=== PATIENT | male | born 1960 | race Hispanic/Latino ===

== ENCOUNTER 2018-09-20 20:33 | Emergency (ER) | payer OTHER ==
[2018-09-20] MEDS ORDERED: KETOROLAC TROMETHAMINE 30MG/ML ONE (22:47)
== END 2018-09-20 23:59 | disposition home or self-care (01) ==
LOC: EDH 20:33
DX: M62.831 Muscle spasm of calf (principal); M25.562 Pain in left knee; Z87.891 Personal history of nicotine dependence
CPT/HCPCS: 93971; 96372; 99284; J1885

== ENCOUNTER 2018-10-16 10:31 | Emergency (ER) | payer OTHER ==
[2018-10-16] MEDS ORDERED: CEFAZOLIN SODIUM 1 GM VIAL ONE (11:04)
== END 2018-10-16 12:21 | disposition home or self-care (01) ==
LOC: EDH 10:31
DX: S62.637A Displaced fracture of distal phalanx of left little finger, initial encounter for closed fracture (principal); S62.633B Displaced fracture of distal phalanx of left middle finger, initial encounter for open fracture; W23.0XXA Caught, crushed, jammed, or pinched between moving objects, initial encounter; Y93.89 Activity, other specified; Y92.89 Other specified places as the place of occurrence of the external cause; Y99.8 Other external cause status
CPT/HCPCS: 29130; 73130; 96372; 99284; J0690

== ENCOUNTER 2020-04-16 20:11 | Inpatient (IN) | payer OTHER ==
[~2020-04-16] VITALS: Ht 154.9 cm; Wt 60.8 kg
[2020-04-16] MEDS ORDERED: DEXAMETHASONE SOD PHOSPHATE 10MG/ML 1ML VIAL ONE (20:42)
[2020-04-16] MEDS ORDERED: AZITHROMYCIN 500MG+NS 250ML 250 ML IV ONE (20:42)
[2020-04-16] MEDS ORDERED: CEFTRIAXONE SODIUM 1 GM ONE (20:42)
[2020-04-16] MEDS ORDERED: ACETAMINOPHEN EXTRA STRENGTH 500 MG TABLET ONE (20:43)
[2020-04-16 20:49] LABS: BASOPHILS % (AUTO) 0.2 % (0.0-5.0); HEMATOCRIT 39.1 % (42-54); LYMPHOCYTES % (AUTO) 3.5 % (21.0-51.0); MEAN CORPUSCULAR HEMOGLOBIN 29.8 pg (27.0-33.0); MEAN CORPUSCULAR HGB CONC 34.3 g/dL (32.0-36.0); MEAN CORPUSCULAR VOLUME 87.1 fL (79-99); MONOCYTES % (AUTO) 2.7 % (3.0-13.0); NEUTROPHILS % (AUTO) 93.2 % (40.0-77.0); PLATELET COUNT (AUTO) 170 K/uL (130-400); RED BLOOD CELL COUNT(AUTO) 4.49 MIL/uL (4.50-6.20); RED CELL DISTRIBUTION WIDTH 13.2 % (11.0-15.5); WHITE BLOOD COUNT (AUTO) 11.1 K/uL (4.8-10.8)
[2020-04-16] MEDS ORDERED: SODIUM CHLORIDE 0.9% 500ML 500 ML IV ONE (20:49)
[2020-04-16 20:59] LABS: CREATININE 1.1 mg/dL (0.5-1.5); POTASSIUM 4.2 mmol/L (3.5-5.1)
[2020-04-16 21:04] LABS: ALBUMIN 2.8 g/dL (3.5-5.0); BILIRUBIN,TOTAL 0.9 mg/dL (0.2-1.0); TOTAL PROTEIN, SERUM 7.3 g/dL (6.0-8.3)
[2020-04-17 03:08] LABS: ABG BASE EXCESS -1.9 mmol/L (-2.0-3.0); ABG OXYGEN SATURATION 95.5 % (95.0-99.0); ABG PCO2 40 mmHg (35-48)
[2020-04-17] MEDS ORDERED: NITROGLYCERIN 0.4 MG SL TAB SL PRN (03:30)
[2020-04-17] MEDS ORDERED: ONDANSETRON HCL 4 MG/2 ML VIAL IV PRN (03:30)
[2020-04-17] MEDS: ASCORBIC ACID 500 MG TAB PO SCH ×3 (03:30→20:23)
[2020-04-17] MEDS ORDERED: DiphenhydrAMINE HCL 50 MG/ML VIAL IV PRN (03:30)
[2020-04-17] MEDS ORDERED: DIPHENHYDRAMINE HCL 25 MG CAPSULE PO PRN (03:30)
[2020-04-17] MEDS ORDERED: LACTULOSE 20 GM/30 ML UDCUP PO PRN (03:30)
[2020-04-17] MEDS: CEFTRIAXONE SODIUM 1 GM IVP SCH (03:30)
[2020-04-17] MEDS ORDERED: ACETAMINOPHEN 325 MG TAB PO PRN (03:30)
[2020-04-17] MEDS ORDERED: MAG HYDROX/AL HYDROX/SIMETH ES 30 ML SUSP UDCUP PO PRN (03:30)
[2020-04-17] MEDS ORDERED: ERGOCALCIFEROL (VITAMIN D2) 50,000 UNIT CAPSULE PO ONE (03:30)
[2020-04-17] MEDS: DEXAMETHASONE SOD PHOSPHATE 4 MG/ML 1ML VIAL IVP SCH ×3 (03:30→20:35)
[2020-04-17] MEDS ORDERED: PHARMACY COMMUNICATION**REMDESIVIR MISC SCH (03:45)
[2020-04-17 04:40] LABS: HEMOGLOBIN A1C 6.2 % (4.0-6.0)
[2020-04-17 04:48] LABS: CRP QUANTITATIVE 303.3 mg/L (0.00-9.0)
[2020-04-17] MEDS ORDERED: DEXAMETHASONE SOD PHOSPHATE 10MG/ML 1ML VIAL ONE ×2 (05:53→09:08)
[2020-04-17] MEDS ORDERED: ASCORBIC ACID 500 MG TAB ONE ×2 (05:53→09:08)
[2020-04-17] MEDS ORDERED: ERGOCALCIFEROL (VITAMIN D2) 50,000 UNIT CAPSULE ONE (05:54)
[2020-04-17] MEDS ORDERED: COMPOUND IV REFRIGERATED 1 EACH IVSOLN MISC PRN (08:30)
[2020-04-17] MEDS ORDERED: REMDESIVIR (EUA) 520 200 MG in SODIUM CHLORIDE 0.9% 250 ML IV ONE (08:30)
[2020-04-17] MEDS ORDERED: ENOXAPARIN SODIUM 40 MG/0.4 ML SYRINGE SQ SCH (09:00)
[2020-04-17] MEDS ORDERED: FAMOTIDINE/PF 20 MG/2 ML VIAL IV SCH (09:00)
[2020-04-17] MEDS ORDERED: ACETYLCYSTEINE 600 MG CAPSULE PO SCH (09:00)
[2020-04-17] MEDS: THIAMINE HCL 100 MG/ML 2ML VIAL IVP SCH (09:00)
[2020-04-17] MEDS: DOXYCYCLINE HYCLATE 100 MG TABLET PO SCH ×2 (09:00→20:43)
[2020-04-17] MEDS ORDERED: DOXYCYCLINE HYCLATE 100 MG TABLET PO ONE (09:07)
[2020-04-17] MEDS ORDERED: THIAMINE HCL 100 MG/ML 2ML VIAL ONE (09:08)
[2020-04-17] MEDS ORDERED: ACETYLCYSTEINE 600 MG CAPSULE ONE (09:08)
[2020-04-17] MEDS ORDERED: FAMOTIDINE/PF 20 MG/2 ML VIAL IV ONE (09:09)
[2020-04-17] MEDS ORDERED: ZINC SULFATE 220 CAPSULE ONE (09:09)
[2020-04-17] MEDS ORDERED: ENOXAPARIN SODIUM 40 MG/0.4 ML SYRINGE SQ ONE (09:09)
[2020-04-17 11:00] VITALS: BP 134/92
[2020-04-17] MEDS: ZINC SULFATE 220 CAPSULE PO SCH (13:14)
[2020-04-17 16:00] VITALS: BP 121/81
[2020-04-17] MEDS ORDERED: GUAIFENESIN-CODEINE 5 ML SYRUP PO PRN (20:15)
[2020-04-17 20:30] VITALS: BP 118/65
[2020-04-17] MEDS: ENOXAPARIN SODIUM 40 MG/0.4 ML SYRINGE SQ SCH (20:48)
[2020-04-17] MEDS: INSULIN HUMULIN R 100 UNIT/ML 3ML SQ SCH (21:07)
[2020-04-17] MEDS: DIPYRIDAMOLE 25 MG TABLET PO SCH (21:54)
[2020-04-17] MEDS: ALBUTEROL SULFATE 0.083% 2.5 MG/3 ML INH IH PRN (21:55)
[2020-04-18 00:08] VITALS: BP 104/62
[2020-04-18] MEDS: ASCORBIC ACID 500 MG TAB PO SCH ×3 (03:27→21:10)
[2020-04-18] MEDS: CEFTRIAXONE SODIUM 1 GM IVP SCH (03:27)
[2020-04-18] MEDS: ALBUTEROL SULFATE 0.083% 2.5 MG/3 ML INH IH PRN (03:30)
[2020-04-18 04:16] VITALS: BP 91/58
[2020-04-18 05:15] LABS: BASOPHILS % (AUTO) 0.1 % (0.0-5.0); HEMATOCRIT 39.3 % (42-54); LYMPHOCYTES % (AUTO) 1.5 % (21.0-51.0); MEAN CORPUSCULAR HEMOGLOBIN 29.3 pg (27.0-33.0); MEAN CORPUSCULAR HGB CONC 33.3 g/dL (32.0-36.0); MEAN CORPUSCULAR VOLUME 87.9 fL (79-99); MONOCYTES % (AUTO) 2.2 % (3.0-13.0); NEUTROPHILS % (AUTO) 95.6 % (40.0-77.0); PLATELET COUNT (AUTO) 232 K/uL (130-400); RED BLOOD CELL COUNT(AUTO) 4.47 MIL/uL (4.50-6.20); RED CELL DISTRIBUTION WIDTH 13.5 % (11.0-15.5); WHITE BLOOD COUNT (AUTO) 17.4 K/uL (4.8-10.8)
[2020-04-18 05:35] LABS: ALBUMIN 2.5 g/dL (3.5-5.0); BILIRUBIN,DIRECT 0.1 mg/dL (0.0-0.3); BILIRUBIN,TOTAL 0.4 mg/dL (0.2-1.0); POTASSIUM 4.1 mmol/L (3.5-5.1)
[2020-04-18] MEDS ORDERED: REMDESIVIR LABS MISC SCH (06:00)
[2020-04-18 06:26] LABS: CRP QUANTITATIVE 3135.9 mg/L (0.00-9.0)
[2020-04-18 06:46] LABS: ERYTHROCYTE SEDIMENTATION RATE 86 MM/HR (0-20)
[2020-04-18] MEDS: INSULIN HUMULIN R 100 UNIT/ML 3ML SQ SCH ×4 (07:01→21:36)
[2020-04-18] MEDS: PANTOPRAZOLE SODIUM 40 MG TABLET.DR PO SCH (08:14)
[2020-04-18] MEDS: DOXYCYCLINE HYCLATE 100 MG TABLET PO SCH ×2 (08:14→21:10)
[2020-04-18] MEDS: ENOXAPARIN SODIUM 40 MG/0.4 ML SYRINGE SQ SCH ×2 (08:14→21:14)
[2020-04-18] MEDS: THIAMINE HCL 100 MG/ML 2ML VIAL IVP SCH (08:15)
[2020-04-18] MEDS: DEXAMETHASONE SOD PHOSPHATE 4 MG/ML 1ML VIAL IVP SCH (08:16)
[2020-04-18 08:26] VITALS: BP 95/58
[2020-04-18] MEDS ORDERED: PANTOPRAZOLE SODIUM 40 MG TABLET.DR PO SCH (09:00)
[2020-04-18] MEDS: DIPYRIDAMOLE 25 MG TABLET PO SCH (09:38)
[2020-04-18] MEDS: BARICITINIB (EUA) 2 MG TABLET PO SCH (11:23)
[2020-04-18] MEDS: ZINC SULFATE 220 CAPSULE PO SCH (11:23)
[2020-04-18 11:44] VITALS: BP 94/58
[2020-04-18] MEDS: REMDESIVIR (EUA) 520 100 MG in SODIUM CHLORIDE 0.9% 250 ML IV SCH (12:49)
[2020-04-18 20:05] VITALS: BP 107/61
[2020-04-19] VITALS (7 sets, daily range): BP systolic 95–115; BP diastolic 47–68
[2020-04-19 03:48] LABS: ABG BASE EXCESS 2.3 mmol/L (-2.0-3.0); ABG HCO3 26.6 mmol/L (21.0-28.0); ABG OXYGEN SATURATION 97.8 % (95.0-99.0); ABG PCO2 40 mmHg (35-48)
[2020-04-19] MEDS: ASCORBIC ACID 500 MG TAB PO SCH ×3 (03:56→20:49)
[2020-04-19] MEDS: CEFTRIAXONE SODIUM 1 GM IVP SCH (03:56)
[2020-04-19 04:41] LABS: BASOPHILS % (AUTO) 0.1 % (0.0-5.0); HEMATOCRIT 38.7 % (42-54); LYMPHOCYTES % (AUTO) 3.1 % (21.0-51.0); MEAN CORPUSCULAR HEMOGLOBIN 29.2 pg (27.0-33.0); MEAN CORPUSCULAR HGB CONC 32.6 g/dL (32.0-36.0); MEAN CORPUSCULAR VOLUME 89.8 fL (79-99); MONOCYTES % (AUTO) 4.4 % (3.0-13.0); NEUTROPHILS % (AUTO) 91.8 % (40.0-77.0); PLATELET COUNT (AUTO) 263 K/uL (130-400); RED BLOOD CELL COUNT(AUTO) 4.31 MIL/uL (4.50-6.20); RED CELL DISTRIBUTION WIDTH 13.9 % (11.0-15.5)
[2020-04-19 05:15] LABS: ALBUMIN 2.4 g/dL (3.5-5.0); BILIRUBIN,TOTAL 0.4 mg/dL (0.2-1.0); CRP QUANTITATIVE 134.8 mg/L (0.00-9.0); MAGNESIUM 2.3 mg/dL (1.80-2.40); POTASSIUM 4.7 mmol/L (3.5-5.1); TOTAL PROTEIN, SERUM 6.5 g/dL (6.0-8.3)
[2020-04-19] MEDS: INSULIN HUMULIN R 100 UNIT/ML 3ML SQ SCH ×4 (07:25→20:49)
[2020-04-19] MEDS: DEXAMETHASONE SOD PHOSPHATE 4 MG/ML 1ML VIAL IVP SCH (08:00)
[2020-04-19] MEDS: THIAMINE HCL 100 MG/ML 2ML VIAL IVP SCH (08:00)
[2020-04-19] MEDS: DOXYCYCLINE HYCLATE 100 MG TABLET PO SCH ×2 (08:01→20:49)
[2020-04-19] MEDS: PANTOPRAZOLE SODIUM 40 MG TABLET.DR PO SCH (08:01)
[2020-04-19] MEDS: DIPYRIDAMOLE 25 MG TABLET PO SCH (08:01)
[2020-04-19] MEDS: ENOXAPARIN SODIUM 40 MG/0.4 ML SYRINGE SQ SCH ×2 (08:03→20:52)
[2020-04-19] MEDS: BARICITINIB (EUA) 2 MG TABLET PO SCH (08:03)
[2020-04-19] MEDS: ZINC SULFATE 220 CAPSULE PO SCH (11:51)
[2020-04-19] MEDS: REMDESIVIR (EUA) 520 100 MG in SODIUM CHLORIDE 0.9% 250 ML IV SCH (12:59)
[2020-04-19] MEDS ORDERED: FAMOTIDINE/PF 20 MG/2 ML VIAL IV SCH (16:00)
[2020-04-20] MEDS ORDERED: GUAIFENESIN-CODEINE 5 ML SYRUP ONE (02:37)
[2020-04-20] MEDS: CEFTRIAXONE SODIUM 1 GM IVP SCH (02:43)
[2020-04-20] MEDS: ASCORBIC ACID 500 MG TAB PO SCH ×3 (02:44→21:18)
[2020-04-20 03:21] VITALS: BP 93/61
[2020-04-20 05:49] LABS: BASOPHILS % (AUTO) 0.1 % (0.0-5.0); HEMATOCRIT 40.4 % (42-54); LYMPHOCYTES % (AUTO) 4.8 % (21.0-51.0); MEAN CORPUSCULAR HEMOGLOBIN 29.7 pg (27.0-33.0); MEAN CORPUSCULAR HGB CONC 32.9 g/dL (32.0-36.0); MEAN CORPUSCULAR VOLUME 90.2 fL (79-99); MONOCYTES % (AUTO) 5.2 % (3.0-13.0); NEUTROPHILS % (AUTO) 88.7 % (40.0-77.0); PLATELET COUNT (AUTO) 283 K/uL (130-400); RED BLOOD CELL COUNT(AUTO) 4.48 MIL/uL (4.50-6.20); RED CELL DISTRIBUTION WIDTH 13.8 % (11.0-15.5); WHITE BLOOD COUNT (AUTO) 12.8 K/uL (4.8-10.8)
[2020-04-20 06:12] LABS: ALBUMIN 2.3 g/dL (3.5-5.0); BILIRUBIN,TOTAL 0.4 mg/dL (0.2-1.0); CRP QUANTITATIVE 60.3 mg/L (0.00-9.0); POTASSIUM 4.6 mmol/L (3.5-5.1); TOTAL PROTEIN, SERUM 6.3 g/dL (6.0-8.3)
[2020-04-20] MEDS: INSULIN HUMULIN R 100 UNIT/ML 3ML SQ SCH ×4 (06:35→20:39)
[2020-04-20 07:56] VITALS: BP 103/55
[2020-04-20] MEDS: THIAMINE HCL 100 MG/ML 2ML VIAL IVP SCH (08:01)
[2020-04-20] MEDS: DEXAMETHASONE SOD PHOSPHATE 4 MG/ML 1ML VIAL IVP SCH (08:01)
[2020-04-20] MEDS: DOXYCYCLINE HYCLATE 100 MG TABLET PO SCH ×2 (08:04→21:18)
[2020-04-20] MEDS: BARICITINIB (EUA) 2 MG TABLET PO SCH (08:04)
[2020-04-20] MEDS: DIPYRIDAMOLE 25 MG TABLET PO SCH (08:05)
[2020-04-20] MEDS: ENOXAPARIN SODIUM 40 MG/0.4 ML SYRINGE SQ SCH ×2 (08:07→21:19)
[2020-04-20] MEDS: GUAIFENESIN-CODEINE 5 ML SYRUP PO PRN ×2 (09:34→21:19)
[2020-04-20] MEDS: ZINC SULFATE 220 CAPSULE PO SCH (11:54)
[2020-04-20 12:00] VITALS: BP 108/62
[2020-04-20] MEDS: REMDESIVIR (EUA) 520 100 MG in SODIUM CHLORIDE 0.9% 250 ML IV SCH (14:48)
[2020-04-20 16:31] VITALS: BP 110/61
[2020-04-20 19:53] VITALS: BP 102/49
[2020-04-21 00:02] VITALS: BP 91/59
[2020-04-21] MEDS: CEFTRIAXONE SODIUM 1 GM IVP SCH (03:26)
[2020-04-21] MEDS: GUAIFENESIN-CODEINE 5 ML SYRUP PO PRN ×2 (03:26→17:05)
[2020-04-21] MEDS: ASCORBIC ACID 500 MG TAB PO SCH ×3 (03:26→20:00)
[2020-04-21 04:52] VITALS: BP 94/46
[2020-04-21 05:29] LABS: BASOPHILS % (AUTO) 0.2 % (0.0-5.0); EOSINOPHILS % (AUTO) 0.3 % (0.0-8.0); HEMATOCRIT 42.9 % (42-54); LYMPHOCYTES % (AUTO) 5.4 % (21.0-51.0); MEAN CORPUSCULAR HEMOGLOBIN 28.9 pg (27.0-33.0); MEAN CORPUSCULAR HGB CONC 32.4 g/dL (32.0-36.0); MEAN CORPUSCULAR VOLUME 89.2 fL (79-99); MONOCYTES % (AUTO) 3.7 % (3.0-13.0); NEUTROPHILS % (AUTO) 88.3 % (40.0-77.0); PLATELET COUNT (AUTO) 304 K/uL (130-400); RED BLOOD CELL COUNT(AUTO) 4.81 MIL/uL (4.50-6.20); RED CELL DISTRIBUTION WIDTH 13.6 % (11.0-15.5); WHITE BLOOD COUNT (AUTO) 13.6 K/uL (4.8-10.8)
[2020-04-21 05:40] LABS: ALBUMIN 2.5 g/dL (3.5-5.0); BILIRUBIN,TOTAL 0.6 mg/dL (0.2-1.0); CREATININE 0.8 mg/dL (0.5-1.5); POTASSIUM 4.5 mmol/L (3.5-5.1)
[2020-04-21] MEDS: INSULIN HUMULIN R 100 UNIT/ML 3ML SQ SCH ×4 (06:27→21:00)
[2020-04-21 08:06] VITALS: BP 96/52
[2020-04-21] MEDS: BARICITINIB (EUA) 2 MG TABLET PO SCH (08:57)
[2020-04-21] MEDS: THIAMINE HCL 100 MG/ML 2ML VIAL IVP SCH (08:57)
[2020-04-21] MEDS: DIPYRIDAMOLE 25 MG TABLET PO SCH (08:57)
[2020-04-21] MEDS: DEXAMETHASONE SOD PHOSPHATE 4 MG/ML 1ML VIAL IVP SCH (08:58)
[2020-04-21] MEDS: DOXYCYCLINE HYCLATE 100 MG TABLET PO SCH ×2 (08:58→21:00)
[2020-04-21] MEDS: ENOXAPARIN SODIUM 40 MG/0.4 ML SYRINGE SQ SCH ×2 (09:00→21:00)
[2020-04-21] MEDS: ZINC SULFATE 220 CAPSULE PO SCH (11:25)
[2020-04-21] MEDS: DOCUSATE SODIUM 100 MG CAP PO SCH ×2 (11:26→18:15)
[2020-04-21] MEDS: REMDESIVIR (EUA) 520 100 MG in SODIUM CHLORIDE 0.9% 250 ML IV SCH (14:16)
[2020-04-21 16:14] VITALS: BP 93/52
[2020-04-21 19:40] VITALS: BP 105/60
[2020-04-21 23:27] VITALS: BP 94/54
[2020-04-22] MEDS: GUAIFENESIN-CODEINE 5 ML SYRUP PO PRN (01:27)
[2020-04-22] MEDS: DOCUSATE SODIUM 100 MG CAP PO SCH ×3 (02:35→17:28)
[2020-04-22 03:42] LABS: ABG BASE EXCESS 1.9 mmol/L (-2.0-3.0); ABG HCO3 25.4 mmol/L (21.0-28.0); ABG PCO2 37 mmHg (35-48)
[2020-04-22 03:43] VITALS: BP 106/62
[2020-04-22] MEDS: CEFTRIAXONE SODIUM 1 GM IVP SCH (03:53)
[2020-04-22] MEDS: ASCORBIC ACID 500 MG TAB PO SCH ×3 (04:13→19:50)
[2020-04-22 06:26] LABS: BASOPHILS % (AUTO) 0.2 % (0.0-5.0); EOSINOPHILS % (AUTO) 0.8 % (0.0-8.0); HEMATOCRIT 41.7 % (42-54); MEAN CORPUSCULAR HEMOGLOBIN 29.6 pg (27.0-33.0); MEAN CORPUSCULAR HGB CONC 33.8 g/dL (32.0-36.0); MEAN CORPUSCULAR VOLUME 87.4 fL (79-99); MONOCYTES % (AUTO) 2.6 % (3.0-13.0); NEUTROPHILS % (AUTO) 90.3 % (40.0-77.0); PLATELET COUNT (AUTO) 311 K/uL (130-400); RED BLOOD CELL COUNT(AUTO) 4.77 MIL/uL (4.50-6.20); RED CELL DISTRIBUTION WIDTH 13.3 % (11.0-15.5); WHITE BLOOD COUNT (AUTO) 16.1 K/uL (4.8-10.8)
[2020-04-22 06:40] LABS: CREATININE 0.8 mg/dL (0.5-1.5); POTASSIUM 4.2 mmol/L (3.5-5.1)
[2020-04-22] MEDS: INSULIN HUMULIN R 100 UNIT/ML 3ML SQ SCH ×4 (07:30→21:00)
[2020-04-22 07:56] VITALS: BP 100/54
[2020-04-22] MEDS: BARICITINIB (EUA) 2 MG TABLET PO SCH (08:22)
[2020-04-22] MEDS: SENNOSIDES 8.6 MG TABLET PO SCH (08:22)
[2020-04-22] MEDS: DOXYCYCLINE HYCLATE 100 MG TABLET PO SCH (08:22)
[2020-04-22] MEDS: DIPYRIDAMOLE 25 MG TABLET PO SCH (08:22)
[2020-04-22] MEDS: THIAMINE HCL 100 MG/ML 2ML VIAL IVP SCH (08:22)
[2020-04-22] MEDS: ENOXAPARIN SODIUM 40 MG/0.4 ML SYRINGE SQ SCH ×2 (08:23→22:35)
[2020-04-22] MEDS: DEXAMETHASONE SOD PHOSPHATE 4 MG/ML 1ML VIAL IVP SCH (08:23)
[2020-04-22] MEDS: ZINC SULFATE 220 CAPSULE PO SCH (11:10)
[2020-04-22 12:11] VITALS: BP 104/64
[2020-04-22] MEDS ORDERED: ALBUTEROL INHALER 90MCG/INH IH PRN (14:15)
[2020-04-22 16:19] VITALS: BP 95/59
[2020-04-22 19:50] VITALS: BP 105/47
[2020-04-22 23:31] VITALS: BP 96/60
[2020-04-23] MEDS: GUAIFENESIN-CODEINE 5 ML SYRUP PO PRN (01:37)
[2020-04-23] MEDS: DOCUSATE SODIUM 100 MG CAP PO SCH ×3 (02:20→18:15)
[2020-04-23 02:50] LABS: ABG BASE EXCESS 1.1 mmol/L (-2.0-3.0); ABG OXYGEN SATURATION 76.5 % (95.0-99.0); ABG PCO2 37 mmHg (35-48)
[2020-04-23] MEDS: CEFTRIAXONE SODIUM 1 GM IVP SCH (02:53)
[2020-04-23 03:46] VITALS: BP 108/61
[2020-04-23 05:10] LABS: BASOPHILS % (AUTO) 0.1 % (0.0-5.0); EOSINOPHILS % (AUTO) 0.1 % (0.0-8.0); HEMATOCRIT 41.6 % (42-54); MEAN CORPUSCULAR HGB CONC 32.9 g/dL (32.0-36.0); MEAN CORPUSCULAR VOLUME 87.9 fL (79-99); MONOCYTES % (AUTO) 2.9 % (3.0-13.0); NEUTROPHILS % (AUTO) 92.1 % (40.0-77.0); PLATELET COUNT (AUTO) 356 K/uL (130-400); RED BLOOD CELL COUNT(AUTO) 4.73 MIL/uL (4.50-6.20); RED CELL DISTRIBUTION WIDTH 13.2 % (11.0-15.5)
[2020-04-23 05:42] LABS: POTASSIUM 4.7 mmol/L (3.5-5.1)
[2020-04-23 07:05] LABS: CRP QUANTITATIVE 207.6 mg/L (0.00-9.0)
[2020-04-23] MEDS: INSULIN HUMULIN R 100 UNIT/ML 3ML SQ SCH ×4 (07:30→21:00)
[2020-04-23 07:54] VITALS: BP 104/60
[2020-04-23] MEDS: BARICITINIB (EUA) 2 MG TABLET PO SCH (08:48)
[2020-04-23] MEDS: DIPYRIDAMOLE 25 MG TABLET PO SCH (08:48)
[2020-04-23] MEDS: DEXAMETHASONE SOD PHOSPHATE 4 MG/ML 1ML VIAL IVP SCH (08:48)
[2020-04-23] MEDS: SENNOSIDES 8.6 MG TABLET PO SCH (08:48)
[2020-04-23] MEDS: THIAMINE HCL 100 MG/ML 2ML VIAL IVP SCH (08:48)
[2020-04-23] MEDS: ENOXAPARIN SODIUM 40 MG/0.4 ML SYRINGE SQ SCH ×2 (08:49→21:40)
[2020-04-23] MEDS: ASCORBIC ACID 500 MG TAB PO SCH ×3 (11:30→21:42)
[2020-04-23] MEDS: ZINC SULFATE 220 CAPSULE PO SCH (12:07)
[2020-04-23 12:34] VITALS: BP 99/50
[2020-04-23 16:50] VITALS: BP 101/58
[2020-04-23] MEDS ORDERED: BUDESONIDE 0.25 MG/2 ML INH IH SCH (18:00)
[2020-04-23 20:14] VITALS: BP 108/55
[2020-04-23] MEDS: ALBUTEROL INHALER 90MCG/INH IH SCH (22:00)
[2020-04-23 23:41] VITALS: BP 103/52
[2020-04-24] MEDS: GUAIFENESIN-CODEINE 5 ML SYRUP PO PRN (01:52)
[2020-04-24] MEDS: DOCUSATE SODIUM 100 MG CAP PO SCH ×3 (01:52→18:47)
[2020-04-24 03:42] VITALS: BP 96/44
[2020-04-24] MEDS: ASCORBIC ACID 500 MG TAB PO SCH ×3 (05:05→21:12)
[2020-04-24] MEDS: ALBUTEROL INHALER 90MCG/INH IH SCH ×3 (05:05→21:13)
[2020-04-24] MEDS: INSULIN HUMULIN R 100 UNIT/ML 3ML SQ SCH ×4 (05:20→20:57)
[2020-04-24 07:58] LABS: BASOPHILS % (AUTO) 0.2 % (0.0-5.0); EOSINOPHILS % (AUTO) 0.4 % (0.0-8.0); HEMATOCRIT 41.8 % (42-54); LYMPHOCYTES % (AUTO) 3.6 % (21.0-51.0); MEAN CORPUSCULAR HEMOGLOBIN 29.7 pg (27.0-33.0); MEAN CORPUSCULAR VOLUME 87.4 fL (79-99); MONOCYTES % (AUTO) 2.1 % (3.0-13.0); NEUTROPHILS % (AUTO) 92.2 % (40.0-77.0); PLATELET COUNT (AUTO) 393 K/uL (130-400); RED BLOOD CELL COUNT(AUTO) 4.78 MIL/uL (4.50-6.20); RED CELL DISTRIBUTION WIDTH 13.4 % (11.0-15.5); WHITE BLOOD COUNT (AUTO) 16.2 K/uL (4.8-10.8)
[2020-04-24 08:07] LABS: CREATININE 0.9 mg/dL (0.5-1.5); POTASSIUM 4.3 mmol/L (3.5-5.1)
[2020-04-24 08:25] VITALS: BP 94/52
[2020-04-24] MEDS: BARICITINIB (EUA) 2 MG TABLET PO SCH (08:37)
[2020-04-24] MEDS: ENOXAPARIN SODIUM 40 MG/0.4 ML SYRINGE SQ SCH ×2 (08:38→21:13)
[2020-04-24] MEDS: SENNOSIDES 8.6 MG TABLET PO SCH (08:38)
[2020-04-24] MEDS: DIPYRIDAMOLE 25 MG TABLET PO SCH (08:38)
[2020-04-24] MEDS: THIAMINE HCL 100 MG/ML 2ML VIAL IVP SCH (08:38)
[2020-04-24] MEDS: DEXAMETHASONE SOD PHOSPHATE 4 MG/ML 1ML VIAL IVP SCH (08:38)
[2020-04-24] MEDS: ZINC SULFATE 220 CAPSULE PO SCH (11:37)
[2020-04-24 12:38] VITALS: BP 103/60
[2020-04-24 16:40] VITALS: BP 97/56
[2020-04-24 20:15] VITALS: BP 117/57
[2020-04-24 23:48] VITALS: BP 96/58
[2020-04-25] MEDS: DOCUSATE SODIUM 100 MG CAP PO SCH ×3 (02:21→18:17)
[2020-04-25 02:59] VITALS: BP 106/56
[2020-04-25] MEDS: ASCORBIC ACID 500 MG TAB PO SCH ×3 (03:28→19:39)
[2020-04-25 04:30] LABS: BASOPHILS % (AUTO) 0.2 % (0.0-5.0); EOSINOPHILS % (AUTO) 0.4 % (0.0-8.0); HEMATOCRIT 42.7 % (42-54); LYMPHOCYTES % (AUTO) 3.3 % (21.0-51.0); MEAN CORPUSCULAR HEMOGLOBIN 29.1 pg (27.0-33.0); MEAN CORPUSCULAR VOLUME 88.2 fL (79-99); MONOCYTES % (AUTO) 1.9 % (3.0-13.0); NEUTROPHILS % (AUTO) 92.8 % (40.0-77.0); PLATELET COUNT (AUTO) 401 K/uL (130-400); RED BLOOD CELL COUNT(AUTO) 4.84 MIL/uL (4.50-6.20); RED CELL DISTRIBUTION WIDTH 13.2 % (11.0-15.5); WHITE BLOOD COUNT (AUTO) 16.5 K/uL (4.8-10.8)
[2020-04-25 04:44] LABS: BILIRUBIN,TOTAL 0.8 mg/dL (0.2-1.0); POTASSIUM 4.3 mmol/L (3.5-5.1); TOTAL PROTEIN, SERUM 6.7 g/dL (6.0-8.3)
[2020-04-25 05:09] LABS: CRP QUANTITATIVE 246.2 mg/L (0.00-9.0)
[2020-04-25] MEDS: ALBUTEROL INHALER 90MCG/INH IH SCH ×3 (06:03→21:28)
[2020-04-25] MEDS: INSULIN HUMULIN R 100 UNIT/ML 3ML SQ SCH ×4 (07:30→21:26)
[2020-04-25 08:00] VITALS: BP 106/57
[2020-04-25] MEDS: DEXAMETHASONE SOD PHOSPHATE 4 MG/ML 1ML VIAL IVP SCH (08:54)
[2020-04-25] MEDS: BARICITINIB (EUA) 2 MG TABLET PO SCH (08:54)
[2020-04-25] MEDS: ENOXAPARIN SODIUM 40 MG/0.4 ML SYRINGE SQ SCH ×2 (08:55→20:39)
[2020-04-25] MEDS: SENNOSIDES 8.6 MG TABLET PO SCH (08:55)
[2020-04-25] MEDS: DIPYRIDAMOLE 25 MG TABLET PO SCH (08:55)
[2020-04-25] MEDS: THIAMINE HCL 100 MG/ML 2ML VIAL IVP SCH (08:56)
[2020-04-25] MEDS: ZINC SULFATE 220 CAPSULE PO SCH (11:09)
[2020-04-25 12:00] VITALS: BP 91/60
[2020-04-25 16:00] VITALS: BP 111/62
[2020-04-25 19:34] VITALS: BP 104/64
[2020-04-25] MEDS: GUAIFENESIN-CODEINE 5 ML SYRUP PO PRN (20:43)
[2020-04-25] MEDS: POLYETHYLENE GLYCOL 3350 17 GM POWD.PACK PO PRN (20:47)
[2020-04-25 23:35] VITALS: BP 100/44
[2020-04-26] MEDS: DOCUSATE SODIUM 100 MG CAP PO SCH ×3 (02:15→17:21)
[2020-04-26 03:16] VITALS: BP 117/65
[2020-04-26] MEDS: ASCORBIC ACID 500 MG TAB PO SCH ×3 (03:25→19:57)
[2020-04-26 06:26] LABS: BASOPHILS % (AUTO) 0.1 % (0.0-5.0); EOSINOPHILS % (AUTO) 0.4 % (0.0-8.0); HEMATOCRIT 44.3 % (42-54); LYMPHOCYTES % (AUTO) 2.5 % (21.0-51.0); MEAN CORPUSCULAR HEMOGLOBIN 29.6 pg (27.0-33.0); MEAN CORPUSCULAR HGB CONC 33.4 g/dL (32.0-36.0); MEAN CORPUSCULAR VOLUME 88.6 fL (79-99); MONOCYTES % (AUTO) 1.9 % (3.0-13.0); NEUTROPHILS % (AUTO) 93.8 % (40.0-77.0); PLATELET COUNT (AUTO) 400 K/uL (130-400); RED CELL DISTRIBUTION WIDTH 13.6 % (11.0-15.5); WHITE BLOOD COUNT (AUTO) 19.5 K/uL (4.8-10.8)
[2020-04-26] MEDS: ALBUTEROL INHALER 90MCG/INH IH SCH ×3 (06:36→22:18)
[2020-04-26] MEDS: INSULIN HUMULIN R 100 UNIT/ML 3ML SQ SCH ×4 (06:36→20:27)
[2020-04-26 06:45] LABS: BILIRUBIN,DIRECT 0.2 mg/dL (0.0-0.3); BILIRUBIN,TOTAL 0.8 mg/dL (0.2-1.0); POTASSIUM 4.3 mmol/L (3.5-5.1)
[2020-04-26 06:53] LABS: CRP QUANTITATIVE 187.3 mg/L (0.00-9.0)
[2020-04-26 08:00] VITALS: BP 99/58
[2020-04-26] MEDS: BARICITINIB (EUA) 2 MG TABLET PO SCH (08:51)
[2020-04-26] MEDS: SENNOSIDES 8.6 MG TABLET PO SCH (08:52)
[2020-04-26] MEDS: ENOXAPARIN SODIUM 40 MG/0.4 ML SYRINGE SQ SCH ×2 (08:52→20:49)
[2020-04-26] MEDS: DIPYRIDAMOLE 25 MG TABLET PO SCH (08:52)
[2020-04-26] MEDS: DEXAMETHASONE SOD PHOSPHATE 4 MG/ML 1ML VIAL IVP SCH (08:53)
[2020-04-26] MEDS: THIAMINE HCL 100 MG/ML 2ML VIAL IVP SCH (08:53)
[2020-04-26] MEDS: ZINC SULFATE 220 CAPSULE PO SCH (11:27)
[2020-04-26 12:00] VITALS: BP 115/71
[2020-04-26 16:00] VITALS: BP 96/51
[2020-04-26 19:00] VITALS: BP 102/55
[2020-04-26] MEDS: POLYETHYLENE GLYCOL 3350 17 GM POWD.PACK PO PRN (20:49)
[2020-04-26] MEDS: GUAIFENESIN-CODEINE 5 ML SYRUP PO PRN (20:50)
[2020-04-26 23:00] VITALS: BP 102/54
[2020-04-27] VITALS (36 sets, daily range): BP systolic 83–120; BP diastolic 48–72
[2020-04-27] MEDS: ASCORBIC ACID 500 MG TAB PO SCH ×3 (04:16→19:58)
[2020-04-27] MEDS: DOCUSATE SODIUM 100 MG CAP PO SCH ×3 (04:17→17:56)
[2020-04-27 04:34] LABS: BASOPHILS % (AUTO) 0.2 % (0.0-5.0); EOSINOPHILS % (AUTO) 0.1 % (0.0-8.0); HEMATOCRIT 43.9 % (42-54); LYMPHOCYTES % (AUTO) 1.9 % (21.0-51.0); MEAN CORPUSCULAR HEMOGLOBIN 29.1 pg (27.0-33.0); MEAN CORPUSCULAR VOLUME 88.2 fL (79-99); MONOCYTES % (AUTO) 2.6 % (3.0-13.0); NEUTROPHILS % (AUTO) 94.4 % (40.0-77.0); PLATELET COUNT (AUTO) 422 K/uL (130-400); RED BLOOD CELL COUNT(AUTO) 4.98 MIL/uL (4.50-6.20); RED CELL DISTRIBUTION WIDTH 13.6 % (11.0-15.5); WHITE BLOOD COUNT (AUTO) 22.9 K/uL (4.8-10.8)
[2020-04-27 05:06] LABS: BILIRUBIN,TOTAL 0.8 mg/dL (0.2-1.0); CREATININE 0.9 mg/dL (0.5-1.5); POTASSIUM 4.5 mmol/L (3.5-5.1); TOTAL PROTEIN, SERUM 6.4 g/dL (6.0-8.3)
[2020-04-27] MEDS ORDERED: LORAZEPAM 2 MG/ML 1 ML VIAL IVP ONE (05:30)
[2020-04-27 05:33] LABS: CRP QUANTITATIVE 193.5 mg/L (0.00-9.0)
[2020-04-27] MEDS: ALBUTEROL INHALER 90MCG/INH IH SCH ×2 (05:51→15:04)
[2020-04-27] MEDS: INSULIN HUMULIN R 100 UNIT/ML 3ML SQ SCH ×4 (06:02→21:00)
[2020-04-27 07:08] LABS: ABG HCO3 23.7 mmol/L (21.0-28.0); ABG OXYGEN SATURATION 77.6 % (95.0-99.0); ABG PCO2 44 mmHg (35-48)
[2020-04-27] MEDS ORDERED: PROPOFOL 1000 MG/100 ML 100 ML IV ONE ×2 (08:17→11:26)
[2020-04-27] MEDS ORDERED: VANCOMYCIN PROTOCOL PER PHARMACY IV SCH (08:30)
[2020-04-27] MEDS ORDERED: FENTANYL CITRATE PF 0.05 MG/ML 1,000 MCG in SODIUM CHLORIDE 0.9% 100 ML IVPB SCH (08:30)
[2020-04-27] MEDS ORDERED: FENTANYL 2500MCG+NS 250ML 250 ML IV ONE ×2 (08:47→17:43)
[2020-04-27] MEDS: MIDAZOLAM 100MG-0.9% NS 100ML 100ML BAG IV SCH (09:00)
[2020-04-27] MEDS ORDERED: FUROSEMIDE 10 MG/ML 2ML VIAL IV SCH (09:15)
[2020-04-27] MEDS ORDERED: PHARMACY COMMUNICATION MISC SCH (09:15)
[2020-04-27] MEDS ORDERED: ARTIFICAL TEARS SOL 15 ML OU SCH (09:30)
[2020-04-27] MEDS: VECURONIUM 50MG/NS 50ML IV SCH ×2 (09:45)
[2020-04-27] MEDS: NOREPINEPHRINE 4MG/NS 250ML 250 ML IV SCH (10:00)
[2020-04-27] MEDS: METHYLPREDNISOLONE SOD SUCC 40MG/ML 1ML IVP SCH (10:17)
[2020-04-27] MEDS: MEROPENEM 1 GM VIAL IVP SCH ×2 (10:17→17:49)
[2020-04-27] MEDS: ENOXAPARIN SODIUM 40 MG/0.4 ML SYRINGE SQ SCH ×2 (10:18→22:23)
[2020-04-27] MEDS: THIAMINE HCL 100 MG/ML 2ML VIAL IVP SCH (10:18)
[2020-04-27] MEDS: SENNOSIDES 8.6 MG TABLET PO SCH (10:18)
[2020-04-27] MEDS: ZINC SULFATE 220 CAPSULE PO SCH (10:18)
[2020-04-27] MEDS: VANCOMYCIN 1GM+NS 250ML 250 ML IV SCH ×2 (10:19→22:46)
[2020-04-27] MEDS: FAMOTIDINE/PF 20 MG/2 ML VIAL IV SCH ×2 (10:22→22:19)
[2020-04-27] MEDS: BARICITINIB (EUA) 2 MG TABLET PO SCH (11:29)
[2020-04-27 11:39] LABS: ABG BASE EXCESS -2.8 mmol/L (-2.0-3.0); ABG HCO3 33.1 mmol/L (21.0-28.0); ABG OXYGEN SATURATION 79.8 % (95.0-99.0); ABG PCO2 138 mmHg (35-48)
[2020-04-27] MEDS: DIPYRIDAMOLE 25 MG TABLET PO SCH (11:45)
[2020-04-27 13:07] LABS: ABG BASE EXCESS -4.6 mmol/L (-2.0-3.0); ABG HCO3 31.2 mmol/L (21.0-28.0); ABG OXYGEN SATURATION 73.2 % (95.0-99.0); ABG PCO2 135 mmHg (35-48)
[2020-04-27] MEDS ORDERED: VASOPRESSIN 20 UNITS in SODIUM CHLORIDE 0.9% 100 ML IV STA (13:42)
[2020-04-27 13:49] LABS: BASOPHILS % (AUTO) 0.2 % (0.0-5.0); HEMATOCRIT 48.5 % (42-54); LYMPHOCYTES % (AUTO) 1.2 % (21.0-51.0); MEAN CORPUSCULAR HEMOGLOBIN 29.4 pg (27.0-33.0); MEAN CORPUSCULAR HGB CONC 31.3 g/dL (32.0-36.0); MEAN CORPUSCULAR VOLUME 93.8 fL (79-99); MONOCYTES % (AUTO) 1.5 % (3.0-13.0); NEUTROPHILS % (AUTO) 95.4 % (40.0-77.0); PLATELET COUNT (AUTO) 445 K/uL (130-400); RED BLOOD CELL COUNT(AUTO) 5.17 MIL/uL (4.50-6.20); RED CELL DISTRIBUTION WIDTH 13.7 % (11.0-15.5)
[2020-04-27 13:51] LABS: WHITE BLOOD COUNT (AUTO) 36.2 K/uL (4.8-10.8)
[2020-04-27 13:55] LABS: ABG BASE EXCESS -6.3 mmol/L (-2.0-3.0); ABG HCO3 26.4 mmol/L (21.0-28.0); ABG OXYGEN SATURATION 75.9 % (95.0-99.0); ABG PCO2 92 mmHg (35-48)
[2020-04-27 14:04] LABS: BILIRUBIN,TOTAL 0.8 mg/dL (0.2-1.0); CREATININE 1.1 mg/dL (0.5-1.5); POTASSIUM 5.4 mmol/L (3.5-5.1); TOTAL PROTEIN, SERUM 7.7 g/dL (6.0-8.3)
[2020-04-27 14:26] LABS: LYMPHOCYTES % (MANUAL) 1 % (22-44); MAN.DIFF COMMENT-IMPRESSION MANUAL DIFFERENTIAL; MONOCYTES % (MANUAL) 2 % (2-9); SEGMENTED NEUTROPHILS % 97 % (40-70)
[2020-04-27 14:27] LABS: PLATELET MORPHOLOGY COMMENT INCREASED
[2020-04-27 14:28] LABS: ALBUMIN 1.9 g/dL (3.5-5.0)
[2020-04-27] MEDS: PHENYLEPHRINE HCL 10 MG in SODIUM CHLORIDE 0.9% 250 ML IV SCH (15:04)
[2020-04-27] MEDS ORDERED: SODIUM POLYSTYRENE SULFONATE 15 GM/60 ML ML NG SCH (15:15)
[2020-04-27 17:13] LABS: INR 1.1 (0.85-1.15); PROTHROMBIN TIME 11.9 SEC (9.6-11.6)
[2020-04-27 17:14] LABS: PARTIAL THROMBOPLASTIN TIME 26.6 SEC (26.3-35.5)
[2020-04-27] MEDS: PROPOFOL 1000 MG/100 ML IV PRN (17:52)
[2020-04-27] MEDS ORDERED: KETAMINE 50MG/ML SYRINGE 50 MG/ML DISP.SYRIN IV ONE (20:07)
[2020-04-27] MEDS ORDERED: ROCURONIUM 10MG/1ML SYR 10 MG/ML ML ONE (20:08)
[2020-04-27] MEDS ORDERED: CEFTRIAXONE SODIUM 500 MG VIAL IV SCH (22:40)
[2020-04-28] VITALS (32 sets, daily range): BP systolic 79–149; BP diastolic 44–80
[2020-04-28] MEDS: MEROPENEM 1 GM VIAL IVP SCH ×3 (00:01→16:46)
[2020-04-28] MEDS: NOREPINEPHRINE 4MG/NS 250ML 250 ML IV SCH ×2 (00:51→11:39)
[2020-04-28] MEDS: MIDAZOLAM 100MG-0.9% NS 100ML 100ML BAG IV SCH (01:19)
[2020-04-28] MEDS: DOCUSATE SODIUM 100 MG CAP PO SCH (02:03)
[2020-04-28] MEDS: PROPOFOL 1000 MG/100 ML IV PRN ×3 (03:08→16:47)
[2020-04-28] MEDS ORDERED: VECURONIUM BROMIDE 10 MG ML IV ONE (03:51)
[2020-04-28] MEDS ORDERED: PHENYLEPHRINE HCL 10 MG/ML 1ML VIAL IV ONE (03:52)
[2020-04-28] MEDS ORDERED: SODIUM CHLORIDE 0.9% 250 ML IV ONE (03:53)
[2020-04-28] MEDS: PHENYLEPHRINE HCL 10 MG in SODIUM CHLORIDE 0.9% 250 ML IV SCH (04:19)
[2020-04-28] MEDS: VECURONIUM 50MG/NS 50ML IV SCH ×2 (04:20)
[2020-04-28] MEDS: ASCORBIC ACID 500 MG TAB PO SCH ×3 (04:26→20:12)
[2020-04-28 05:15] LABS: BASOPHILS % (AUTO) 0.1 % (0.0-5.0); EOSINOPHILS % (AUTO) 0.1 % (0.0-8.0); HEMATOCRIT 43.3 % (42-54); LYMPHOCYTES % (AUTO) 2.5 % (21.0-51.0); MEAN CORPUSCULAR HGB CONC 31.6 g/dL (32.0-36.0); MEAN CORPUSCULAR VOLUME 91.7 fL (79-99); MONOCYTES % (AUTO) 2.4 % (3.0-13.0); NEUTROPHILS % (AUTO) 93.9 % (40.0-77.0); PLATELET COUNT (AUTO) 396 K/uL (130-400); RED BLOOD CELL COUNT(AUTO) 4.72 MIL/uL (4.50-6.20); RED CELL DISTRIBUTION WIDTH 13.5 % (11.0-15.5); WHITE BLOOD COUNT (AUTO) 24.2 K/uL (4.8-10.8)
[2020-04-28 05:31] LABS: ALBUMIN 1.7 g/dL (3.5-5.0); BILIRUBIN,TOTAL 0.4 mg/dL (0.2-1.0); CREATININE 1.2 mg/dL (0.5-1.5); TOTAL PROTEIN, SERUM 6.5 g/dL (6.0-8.3)
[2020-04-28 05:50] LABS: CRP QUANTITATIVE 205.3 mg/L (0.00-9.0)
[2020-04-28] MEDS: INSULIN HUMULIN R 100 UNIT/ML 3ML SQ SCH ×3 (06:59→16:48)
[2020-04-28 07:33] LABS: ABG BASE EXCESS 2.2 mmol/L (-2.0-3.0); ABG OXYGEN SATURATION 90.7 % (95.0-99.0); ABG PCO2 48 mmHg (35-48)
[2020-04-28] MEDS ORDERED: FENTANYL CITRATE PF 0.05 MG/ML 2,500 MCG in SODIUM CHLORIDE 0.9% 250 ML IVPB SCH (08:30)
[2020-04-28] MEDS ORDERED: FENTANYL 2500MCG+NS 250ML 250 ML IV ONE (08:38)
[2020-04-28] MEDS: METHYLPREDNISOLONE SOD SUCC 40MG/ML 1ML IVP SCH (08:46)
[2020-04-28] MEDS: BARICITINIB (EUA) 2 MG TABLET PO SCH (08:46)
[2020-04-28] MEDS: SENNOSIDES 8.6 MG TABLET PO SCH (08:47)
[2020-04-28] MEDS: FAMOTIDINE/PF 20 MG/2 ML VIAL IV SCH ×2 (08:47→21:36)
[2020-04-28] MEDS: THIAMINE HCL 100 MG/ML 2ML VIAL IVP SCH (08:47)
[2020-04-28] MEDS: ENOXAPARIN SODIUM 40 MG/0.4 ML SYRINGE SQ SCH ×2 (08:48→21:36)
[2020-04-28] MEDS: VANCOMYCIN 1GM+NS 250ML 250 ML IV SCH ×2 (09:01→22:45)
[2020-04-28] MEDS: DIPYRIDAMOLE 25 MG TABLET PO SCH (09:03)
[2020-04-28] MEDS: ZINC SULFATE 220 CAPSULE PO SCH (11:35)
[2020-04-28] MEDS: DOCUSATE NA 100MG/10ML UDCUP NG SCH ×2 (15:09→22:36)
[2020-04-28] MEDS: FUROSEMIDE 10 MG/ML 2ML VIAL IVP SCH ×2 (15:09→22:36)
[2020-04-29] VITALS (37 sets, daily range): BP systolic 93–132; BP diastolic 54–74
[2020-04-29] MEDS ORDERED: FUROSEMIDE 10 MG/ML 4ML VIAL ONE (00:24)
[2020-04-29] MEDS ORDERED: DOCUSATE SODIUM 100 MG CAP PO ONE (00:24)
[2020-04-29] MEDS ORDERED: FENTANYL 2500MCG+NS 250ML 250 ML IV ONE ×2 (00:25→15:49)
[2020-04-29] MEDS: MEROPENEM 1 GM VIAL IVP SCH ×3 (02:12→16:06)
[2020-04-29] MEDS: NOREPINEPHRINE 4MG/NS 250ML 250 ML IV SCH ×2 (02:24→13:27)
[2020-04-29] MEDS: PROPOFOL 1000 MG/100 ML IV PRN ×5 (02:25→22:20)
[2020-04-29] MEDS: ASCORBIC ACID 500 MG TAB PO SCH ×3 (02:54→20:23)
[2020-04-29] MEDS: VECURONIUM 50MG/NS 50ML IV SCH ×2 (03:18)
[2020-04-29 05:06] LABS: BASOPHILS % (AUTO) 0.1 % (0.0-5.0); EOSINOPHILS % (AUTO) 0.7 % (0.0-8.0); HEMATOCRIT 42.8 % (42-54); MEAN CORPUSCULAR HEMOGLOBIN 28.8 pg (27.0-33.0); MEAN CORPUSCULAR VOLUME 89.9 fL (79-99); MONOCYTES % (AUTO) 2.7 % (3.0-13.0); NEUTROPHILS % (AUTO) 91.8 % (40.0-77.0); PLATELET COUNT (AUTO) 415 K/uL (130-400); RED BLOOD CELL COUNT(AUTO) 4.76 MIL/uL (4.50-6.20); RED CELL DISTRIBUTION WIDTH 13.6 % (11.0-15.5); WHITE BLOOD COUNT (AUTO) 21.8 K/uL (4.8-10.8)
[2020-04-29 05:14] LABS: ALBUMIN 1.8 g/dL (3.5-5.0); BILIRUBIN,TOTAL 0.5 mg/dL (0.2-1.0); CREATININE 1.1 mg/dL (0.5-1.5); TOTAL PROTEIN, SERUM 6.6 g/dL (6.0-8.3)
[2020-04-29] MEDS: FUROSEMIDE 10 MG/ML 2ML VIAL IVP SCH ×3 (05:35→22:23)
[2020-04-29] MEDS: INSULIN HUMULIN R 100 UNIT/ML 3ML SQ SCH ×4 (05:45→17:48)
[2020-04-29 06:24] LABS: ABG BASE EXCESS 12.8 mmol/L (-2.0-3.0); ABG HCO3 38.5 mmol/L (21.0-28.0); ABG OXYGEN SATURATION 85.3 % (95.0-99.0); ABG PCO2 52 mmHg (35-48)
[2020-04-29] MEDS: DOCUSATE NA 100MG/10ML UDCUP NG SCH ×3 (06:39→22:23)
[2020-04-29] MEDS: BARICITINIB (EUA) 2 MG TABLET PO SCH (09:09)
[2020-04-29] MEDS: ENOXAPARIN SODIUM 40 MG/0.4 ML SYRINGE SQ SCH ×2 (09:09→21:53)
[2020-04-29] MEDS: DIPYRIDAMOLE 25 MG TABLET PO SCH (09:09)
[2020-04-29] MEDS: FAMOTIDINE/PF 20 MG/2 ML VIAL IV SCH ×2 (09:10→21:50)
[2020-04-29] MEDS: THIAMINE HCL 100 MG/ML 2ML VIAL IVP SCH (09:10)
[2020-04-29] MEDS: SENNOSIDES 8.6 MG TABLET PO SCH (09:10)
[2020-04-29] MEDS: VANCOMYCIN 1GM+NS 250ML 250 ML IV SCH ×2 (09:11→21:52)
[2020-04-29] MEDS: METHYLPREDNISOLONE SOD SUCC 40MG/ML 1ML IVP SCH (09:11)
[2020-04-29] MEDS: POTASSIUM CHLORIDE 20MEQ/100ML 100 ML IV PRN ×2 (09:12→11:50)
[2020-04-29] MEDS: LACTULOSE 20 GM/30 ML UDCUP GT SCH (10:00)
[2020-04-29] MEDS: POLYETHYLENE GLYCOL 3350 17 GM POWD.PACK PO SCH (10:00)
[2020-04-29] MEDS: ZINC SULFATE 220 CAPSULE PO SCH (10:05)
[2020-04-29] MEDS: MIDAZOLAM 100MG-0.9% NS 100ML 100ML BAG IV PRN (11:50)
[2020-04-29 13:16] LABS: POTASSIUM 4.5 mmol/L (3.5-5.1)
[2020-04-29] MEDS: ACETAMINOPHEN 325 MG TAB PO PRN (13:25)
[2020-04-29] MEDS: MIDODRINE HCL 5 MG TABLET GT SCH ×2 (13:25→21:50)
[2020-04-29] MEDS ORDERED: FLUCONAZOLE 200 MG/NS 100 ML 100 ML IV SCH (13:30)
[2020-04-30] VITALS (10 sets, daily range): BP systolic 72–135; BP diastolic 35–74
[2020-04-30] MEDS: MEROPENEM 1 GM VIAL IVP SCH ×3 (00:02→16:59)
[2020-04-30] MEDS: NOREPINEPHRINE 4MG/NS 250ML 250 ML IV SCH ×2 (02:07→13:47)
[2020-04-30] MEDS: ASCORBIC ACID 500 MG TAB PO SCH ×3 (03:54→18:42)
[2020-04-30] MEDS: FENTANYL 2500MCG+NS 250ML 250 ML IV SCH ×2 (04:40→16:55)
[2020-04-30] MEDS: MIDAZOLAM 100MG-0.9% NS 100ML 100ML BAG IV PRN (04:40)
[2020-04-30] MEDS: PROPOFOL 1000 MG/100 ML IV PRN ×3 (04:45→18:08)
[2020-04-30 05:11] LABS: ABG BASE EXCESS 12.6 mmol/L (-2.0-3.0); ABG HCO3 40.1 mmol/L (21.0-28.0); ABG OXYGEN SATURATION 86.8 % (95.0-99.0); ABG PCO2 63 mmHg (35-48)
[2020-04-30] MEDS: VECURONIUM 50MG/NS 50ML IV SCH ×4 (05:21→21:31)
[2020-04-30] MEDS: INSULIN HUMULIN R 100 UNIT/ML 3ML SQ SCH ×4 (06:00→17:04)
[2020-04-30] MEDS: FUROSEMIDE 10 MG/ML 2ML VIAL IVP SCH ×2 (06:32→13:33)
[2020-04-30] MEDS: DOCUSATE NA 100MG/10ML UDCUP NG SCH ×3 (06:33→22:16)
[2020-04-30 07:52] LABS: ALBUMIN 1.6 g/dL (3.5-5.0); BILIRUBIN,TOTAL 0.3 mg/dL (0.2-1.0); CREATININE 0.8 mg/dL (0.5-1.5); CRP QUANTITATIVE 70.1 mg/L (0.00-9.0); MAGNESIUM 2.2 mg/dL (1.80-2.40); POTASSIUM 3.5 mmol/L (3.5-5.1); TOTAL PROTEIN, SERUM 6.1 g/dL (6.0-8.3)
[2020-04-30 08:26] LABS: BASOPHILS % (AUTO) 0.1 % (0.0-5.0); EOSINOPHILS % (AUTO) 1.9 % (0.0-8.0); HEMATOCRIT 42.8 % (42-54); LYMPHOCYTES % (AUTO) 4.9 % (21.0-51.0); MEAN CORPUSCULAR HGB CONC 30.8 g/dL (32.0-36.0); MEAN CORPUSCULAR VOLUME 94.1 fL (79-99); MONOCYTES % (AUTO) 2.9 % (3.0-13.0); NEUTROPHILS % (AUTO) 89.6 % (40.0-77.0); PLATELET COUNT (AUTO) 356 K/uL (130-400); RED BLOOD CELL COUNT(AUTO) 4.55 MIL/uL (4.50-6.20); RED CELL DISTRIBUTION WIDTH 14.2 % (11.0-15.5); WHITE BLOOD COUNT (AUTO) 22.8 K/uL (4.8-10.8)
[2020-04-30] MEDS: SENNOSIDES 8.6 MG TABLET PO SCH (09:00)
[2020-04-30] MEDS: THIAMINE HCL 100 MG/ML 2ML VIAL IVP SCH (11:04)
[2020-04-30] MEDS: ENOXAPARIN SODIUM 40 MG/0.4 ML SYRINGE SQ SCH ×2 (11:04→21:36)
[2020-04-30] MEDS: FAMOTIDINE/PF 20 MG/2 ML VIAL IV SCH ×2 (11:04→21:32)
[2020-04-30] MEDS: ZINC SULFATE 220 CAPSULE PO SCH (11:05)
[2020-04-30] MEDS: LACTULOSE 20 GM/30 ML UDCUP GT SCH (11:13)
[2020-04-30] MEDS: VANCOMYCIN 1GM+NS 250ML 250 ML IV SCH ×2 (11:14→21:32)
[2020-04-30] MEDS: MIDODRINE HCL 5 MG TABLET GT SCH ×3 (11:14→21:32)
[2020-04-30] MEDS: METHYLPREDNISOLONE SOD SUCC 40MG/ML 1ML IVP SCH (11:14)
[2020-04-30] MEDS: FLUCONAZOLE 200 MG/NS 100 ML 100 ML IV SCH (11:15)
[2020-04-30] MEDS: POLYETHYLENE GLYCOL 3350 17 GM POWD.PACK PO SCH (11:15)
[2020-04-30] MEDS: BARICITINIB (EUA) 2 MG TABLET PO SCH (11:17)
[2020-04-30] MEDS: DIPYRIDAMOLE 25 MG TABLET PO SCH (11:23)
[2020-04-30] MEDS: FUROSEMIDE 10 MG/ML 4ML VIAL IVP SCH (22:17)
[2020-05-01] VITALS (21 sets, daily range): BP systolic 68–154; BP diastolic 38–91
[2020-05-01] MEDS: MEROPENEM 1 GM VIAL IVP SCH ×3 (00:38→17:06)
[2020-05-01] MEDS: MIDAZOLAM 100MG-0.9% NS 100ML 100ML BAG IV PRN ×2 (00:58→21:44)
[2020-05-01] MEDS: INSULIN HUMULIN R 100 UNIT/ML 3ML SQ SCH ×4 (01:00→17:09)
[2020-05-01] MEDS: PROPOFOL 1000 MG/100 ML IV PRN ×4 (01:16→20:26)
[2020-05-01] MEDS: NOREPINEPHRINE 4MG/NS 250ML 250 ML IV SCH ×2 (01:55→23:57)
[2020-05-01] MEDS: ASCORBIC ACID 500 MG TAB PO SCH ×3 (03:46→21:45)
[2020-05-01] MEDS: FUROSEMIDE 10 MG/ML 4ML VIAL IVP SCH ×3 (06:00→22:00)
[2020-05-01 06:19] LABS: BASOPHILS % (AUTO) 0.2 % (0.0-5.0); EOSINOPHILS % (AUTO) 1.6 % (0.0-8.0); HEMATOCRIT 42.3 % (42-54); LYMPHOCYTES % (AUTO) 5.1 % (21.0-51.0); MEAN CORPUSCULAR HEMOGLOBIN 29.4 pg (27.0-33.0); MEAN CORPUSCULAR HGB CONC 32.2 g/dL (32.0-36.0); MEAN CORPUSCULAR VOLUME 91.6 fL (79-99); MONOCYTES % (AUTO) 3.8 % (3.0-13.0); NEUTROPHILS % (AUTO) 88.5 % (40.0-77.0); PLATELET COUNT (AUTO) 329 K/uL (130-400); RED BLOOD CELL COUNT(AUTO) 4.62 MIL/uL (4.50-6.20); WHITE BLOOD COUNT (AUTO) 21.2 K/uL (4.8-10.8)
[2020-05-01] MEDS: DOCUSATE NA 100MG/10ML UDCUP NG SCH ×3 (06:29→22:43)
[2020-05-01 06:35] LABS: ALBUMIN 1.6 g/dL (3.5-5.0); BILIRUBIN,TOTAL 0.3 mg/dL (0.2-1.0); CREATININE 0.8 mg/dL (0.5-1.5); CRP QUANTITATIVE 82.8 mg/L (0.00-9.0); POTASSIUM 3.7 mmol/L (3.5-5.1); TOTAL PROTEIN, SERUM 6.1 g/dL (6.0-8.3)
[2020-05-01] MEDS: FENTANYL 2500MCG+NS 250ML 250 ML IV SCH ×2 (07:06→20:28)
[2020-05-01 07:41] LABS: ABG BASE EXCESS 16.8 mmol/L (-2.0-3.0); ABG HCO3 45.3 mmol/L (21.0-28.0); ABG OXYGEN SATURATION 82.3 % (95.0-99.0); ABG PCO2 70 mmHg (35-48)
[2020-05-01] MEDS: FAMOTIDINE/PF 20 MG/2 ML VIAL IV SCH ×2 (08:12→21:45)
[2020-05-01] MEDS: METHYLPREDNISOLONE SOD SUCC 40MG/ML 1ML IVP SCH (08:12)
[2020-05-01] MEDS: ENOXAPARIN SODIUM 40 MG/0.4 ML SYRINGE SQ SCH ×2 (08:13→21:47)
[2020-05-01] MEDS: VANCOMYCIN 1GM+NS 250ML 250 ML IV SCH ×2 (08:14→21:46)
[2020-05-01] MEDS: FLUCONAZOLE 200 MG/NS 100 ML 100 ML IV SCH (08:14)
[2020-05-01] MEDS: THIAMINE HCL 100 MG/ML 2ML VIAL IVP SCH (08:18)
[2020-05-01] MEDS: POLYETHYLENE GLYCOL 3350 17 GM POWD.PACK PO SCH (08:19)
[2020-05-01] MEDS: SENNOSIDES 8.6 MG TABLET PO SCH (08:19)
[2020-05-01] MEDS: MIDODRINE HCL 5 MG TABLET GT SCH ×3 (08:19→21:45)
[2020-05-01] MEDS: BARICITINIB (EUA) 2 MG TABLET PO SCH (09:00)
[2020-05-01] MEDS: DIPYRIDAMOLE 25 MG TABLET PO SCH (09:36)
[2020-05-01] MEDS: INSULIN GLARGINE 100 UNITS/ML 10 ML VIAL SQ SCH (09:37)
[2020-05-01] MEDS: LACTULOSE 20 GM/30 ML UDCUP GT SCH (09:41)
[2020-05-01] MEDS: ZINC SULFATE 220 CAPSULE PO SCH (10:04)
[2020-05-01] MEDS: VECURONIUM 50MG/NS 50ML IV SCH ×2 (11:59)
[2020-05-02] VITALS (54 sets, daily range): BP systolic 87–140; BP diastolic 55–87
[2020-05-02] MEDS: INSULIN HUMULIN R 100 UNIT/ML 3ML SQ SCH ×4 (00:09→16:53)
[2020-05-02] MEDS: MEROPENEM 1 GM VIAL IVP SCH ×3 (00:24→16:51)
[2020-05-02] MEDS: PROPOFOL 1000 MG/100 ML IV PRN ×4 (02:24→18:49)
[2020-05-02] MEDS: ASCORBIC ACID 500 MG TAB PO SCH ×3 (03:57→18:48)
[2020-05-02] MEDS: DOCUSATE NA 100MG/10ML UDCUP NG SCH ×3 (05:47→22:34)
[2020-05-02 05:51] LABS: BASOPHILS % (AUTO) 0.1 % (0.0-5.0); EOSINOPHILS % (AUTO) 0.2 % (0.0-8.0); HEMATOCRIT 41.5 % (42-54); MEAN CORPUSCULAR HEMOGLOBIN 29.2 pg (27.0-33.0); MEAN CORPUSCULAR HGB CONC 32.8 g/dL (32.0-36.0); MEAN CORPUSCULAR VOLUME 89.2 fL (79-99); MONOCYTES % (AUTO) 4.4 % (3.0-13.0); NEUTROPHILS % (AUTO) 90.3 % (40.0-77.0); PLATELET COUNT (AUTO) 341 K/uL (130-400); RED BLOOD CELL COUNT(AUTO) 4.65 MIL/uL (4.50-6.20); RED CELL DISTRIBUTION WIDTH 13.7 % (11.0-15.5); WHITE BLOOD COUNT (AUTO) 22.3 K/uL (4.8-10.8)
[2020-05-02 06:23] LABS: ALBUMIN 1.7 g/dL (3.5-5.0); BILIRUBIN,TOTAL 0.4 mg/dL (0.2-1.0); CREATININE 0.9 mg/dL (0.5-1.5); CRP QUANTITATIVE 110.2 mg/L (0.00-9.0); POTASSIUM 3.5 mmol/L (3.5-5.1); TOTAL PROTEIN, SERUM 6.1 g/dL (6.0-8.3)
[2020-05-02 07:42] LABS: ABG BASE EXCESS 15.6 mmol/L (-2.0-3.0); ABG HCO3 38.9 mmol/L (21.0-28.0); ABG OXYGEN SATURATION 80.1 % (95.0-99.0); ABG PCO2 41 mmHg (35-48)
[2020-05-02] MEDS: VANCOMYCIN 1GM+NS 250ML 250 ML IV SCH ×2 (08:24→22:33)
[2020-05-02] MEDS: FLUCONAZOLE 200 MG/NS 100 ML 100 ML IV SCH (08:25)
[2020-05-02] MEDS: FAMOTIDINE/PF 20 MG/2 ML VIAL IV SCH ×2 (08:27→22:33)
[2020-05-02] MEDS: MIDODRINE HCL 5 MG TABLET GT SCH ×3 (08:27→22:32)
[2020-05-02] MEDS: THIAMINE HCL 100 MG/ML 2ML VIAL IVP SCH (08:27)
[2020-05-02] MEDS: FUROSEMIDE 10 MG/ML 4ML VIAL IVP SCH ×3 (08:28→22:34)
[2020-05-02] MEDS: METHYLPREDNISOLONE SOD SUCC 40MG/ML 1ML IVP SCH (08:28)
[2020-05-02] MEDS: ENOXAPARIN SODIUM 40 MG/0.4 ML SYRINGE SQ SCH ×2 (08:28→21:26)
[2020-05-02] MEDS: POTASSIUM CHLORIDE 20MEQ/100ML 100 ML IV PRN (08:29)
[2020-05-02] MEDS: FENTANYL 2500MCG+NS 250ML 250 ML IV SCH ×2 (08:32→18:51)
[2020-05-02] MEDS: NOREPINEPHRINE 4MG/NS 250ML 250 ML IV SCH ×3 (08:32→18:50)
[2020-05-02] MEDS: INSULIN GLARGINE 100 UNITS/ML 10 ML VIAL SQ SCH (08:33)
[2020-05-02] MEDS: POLYETHYLENE GLYCOL 3350 17 GM POWD.PACK PO SCH (08:33)
[2020-05-02] MEDS: SENNOSIDES 8.6 MG TABLET PO SCH (08:33)
[2020-05-02] MEDS: LACTULOSE 20 GM/30 ML UDCUP GT SCH (08:34)
[2020-05-02] MEDS: DIPYRIDAMOLE 25 MG TABLET PO SCH (08:39)
[2020-05-02] MEDS: ZINC SULFATE 220 CAPSULE PO SCH (11:34)
[2020-05-02] MEDS: MIDAZOLAM 100MG-0.9% NS 100ML 100ML BAG IV PRN (16:52)
[2020-05-02] MEDS: VECURONIUM 50MG/NS 50ML IV SCH ×2 (16:54)
[2020-05-03] VITALS (51 sets, daily range): BP systolic 96–153; BP diastolic 56–93
[2020-05-03] MEDS: INSULIN HUMULIN R 100 UNIT/ML 3ML SQ SCH ×4 (00:31→17:13)
[2020-05-03] MEDS: NOREPINEPHRINE 4MG/NS 250ML 250 ML IV SCH ×5 (00:34→23:56)
[2020-05-03] MEDS: MEROPENEM 1 GM VIAL IVP SCH ×3 (00:34→16:11)
[2020-05-03] MEDS: PROPOFOL 1000 MG/100 ML IV PRN ×5 (01:42→23:56)
[2020-05-03] MEDS: ASCORBIC ACID 500 MG TAB PO SCH ×3 (03:30→18:35)
[2020-05-03] MEDS: VECURONIUM 50MG/NS 50ML IV SCH ×6 (04:17→21:46)
[2020-05-03] MEDS: FENTANYL 2500MCG+NS 250ML 250 ML IV SCH ×2 (04:17→16:14)
[2020-05-03 04:30] LABS: BASOPHILS % (AUTO) 0.2 % (0.0-5.0); EOSINOPHILS % (AUTO) 1.3 % (0.0-8.0); HEMATOCRIT 39.9 % (42-54); LYMPHOCYTES % (AUTO) 4.9 % (21.0-51.0); MEAN CORPUSCULAR HEMOGLOBIN 29.5 pg (27.0-33.0); MEAN CORPUSCULAR HGB CONC 33.1 g/dL (32.0-36.0); MEAN CORPUSCULAR VOLUME 89.3 fL (79-99); MONOCYTES % (AUTO) 3.5 % (3.0-13.0); NEUTROPHILS % (AUTO) 88.4 % (40.0-77.0); PLATELET COUNT (AUTO) 165 K/uL (130-400); RED BLOOD CELL COUNT(AUTO) 4.47 MIL/uL (4.50-6.20); RED CELL DISTRIBUTION WIDTH 14.1 % (11.0-15.5)
[2020-05-03 04:35] LABS: CREATININE 0.8 mg/dL (0.5-1.5); MAGNESIUM 2.4 mg/dL (1.80-2.40); POTASSIUM 3.7 mmol/L (3.5-5.1)
[2020-05-03 04:50] LABS: CRP QUANTITATIVE 285.1 mg/L (0.00-9.0)
[2020-05-03] MEDS: POTASSIUM CHLORIDE 20MEQ/100ML 100 ML IV PRN ×2 (04:53→11:34)
[2020-05-03] MEDS: FUROSEMIDE 10 MG/ML 4ML VIAL IVP SCH ×2 (05:17→14:17)
[2020-05-03] MEDS: DOCUSATE NA 100MG/10ML UDCUP NG SCH ×3 (05:17→21:07)
[2020-05-03] MEDS: MIDAZOLAM 100MG-0.9% NS 100ML 100ML BAG IV PRN ×2 (07:13→21:12)
[2020-05-03 07:26] LABS: ABG BASE EXCESS 11.5 mmol/L (-2.0-3.0); ABG OXYGEN SATURATION 84.6 % (95.0-99.0); ABG PCO2 46 mmHg (35-48)
[2020-05-03] MEDS: METHYLPREDNISOLONE SOD SUCC 40MG/ML 1ML IVP SCH (08:11)
[2020-05-03] MEDS: ENOXAPARIN SODIUM 40 MG/0.4 ML SYRINGE SQ SCH ×2 (08:11→21:07)
[2020-05-03] MEDS: DIPYRIDAMOLE 25 MG TABLET PO SCH (08:12)
[2020-05-03] MEDS: FAMOTIDINE/PF 20 MG/2 ML VIAL IV SCH ×2 (08:12→21:06)
[2020-05-03] MEDS: THIAMINE HCL 100 MG/ML 2ML VIAL IVP SCH (08:12)
[2020-05-03] MEDS: SENNOSIDES 8.6 MG TABLET PO SCH (08:12)
[2020-05-03] MEDS: MIDODRINE HCL 5 MG TABLET GT SCH ×3 (08:12→21:05)
[2020-05-03] MEDS: FLUCONAZOLE 200 MG/NS 100 ML 100 ML IV SCH (08:13)
[2020-05-03] MEDS: VANCOMYCIN 1GM+NS 250ML 250 ML IV SCH ×2 (08:13→21:06)
[2020-05-03] MEDS: POLYETHYLENE GLYCOL 3350 17 GM POWD.PACK PO SCH (08:13)
[2020-05-03] MEDS: INSULIN GLARGINE 100 UNITS/ML 10 ML VIAL SQ SCH (08:15)
[2020-05-03] MEDS: LACTULOSE 20 GM/30 ML UDCUP GT SCH (08:18)
[2020-05-03] MEDS: ZINC SULFATE 220 CAPSULE PO SCH (10:07)
[2020-05-03] MEDS: ACETAMINOPHEN 325 MG TAB PO PRN (10:08)
[2020-05-04] VITALS (69 sets, daily range): BP systolic 70–158; BP diastolic 37–97
[2020-05-04] MEDS: MEROPENEM 1 GM VIAL IVP SCH ×3 (00:08→17:23)
[2020-05-04] MEDS: INSULIN HUMULIN R 100 UNIT/ML 3ML SQ SCH ×4 (00:41→17:25)
[2020-05-04] MEDS: FENTANYL 2500MCG+NS 250ML 250 ML IV SCH ×2 (02:44→08:33)
[2020-05-04] MEDS: ASCORBIC ACID 500 MG TAB PO SCH ×3 (03:52→21:15)
[2020-05-04 04:02] LABS: BASOPHILS % (AUTO) 0.2 % (0.0-5.0); EOSINOPHILS % (AUTO) 1.4 % (0.0-8.0); HEMATOCRIT 39.4 % (42-54); MEAN CORPUSCULAR HEMOGLOBIN 28.8 pg (27.0-33.0); MEAN CORPUSCULAR HGB CONC 31.5 g/dL (32.0-36.0); MEAN CORPUSCULAR VOLUME 91.6 fL (79-99); MONOCYTES % (AUTO) 3.9 % (3.0-13.0); NEUTROPHILS % (AUTO) 89.2 % (40.0-77.0); PLATELET COUNT (AUTO) 301 K/uL (130-400); RED CELL DISTRIBUTION WIDTH 14.3 % (11.0-15.5); WHITE BLOOD COUNT (AUTO) 19.4 K/uL (4.8-10.8)
[2020-05-04 04:10] LABS: CREATININE 0.8 mg/dL (0.5-1.5); POTASSIUM 4.2 mmol/L (3.5-5.1)
[2020-05-04] MEDS: NOREPINEPHRINE 4MG/NS 250ML 250 ML IV SCH ×3 (06:11→21:19)
[2020-05-04] MEDS: DOCUSATE NA 100MG/10ML UDCUP NG SCH ×3 (06:12→21:13)
[2020-05-04] MEDS: PROPOFOL 1000 MG/100 ML IV PRN ×4 (06:12→23:44)
[2020-05-04] MEDS: VECURONIUM 50MG/NS 50ML IV SCH ×2 (06:22)
[2020-05-04] MEDS: POLYETHYLENE GLYCOL 3350 17 GM POWD.PACK PO SCH (08:27)
[2020-05-04] MEDS: ENOXAPARIN SODIUM 40 MG/0.4 ML SYRINGE SQ SCH ×2 (08:27→21:14)
[2020-05-04] MEDS: DIPYRIDAMOLE 25 MG TABLET PO SCH (08:27)
[2020-05-04] MEDS: METHYLPREDNISOLONE SOD SUCC 40MG/ML 1ML IVP SCH (08:28)
[2020-05-04] MEDS: MIDODRINE HCL 5 MG TABLET GT SCH ×3 (08:28→21:13)
[2020-05-04] MEDS: THIAMINE HCL 100 MG/ML 2ML VIAL IVP SCH (08:28)
[2020-05-04] MEDS: FAMOTIDINE/PF 20 MG/2 ML VIAL IV SCH ×2 (08:28→21:14)
[2020-05-04] MEDS: SENNOSIDES 8.6 MG TABLET PO SCH (08:28)
[2020-05-04] MEDS: FLUCONAZOLE 200 MG/NS 100 ML 100 ML IV SCH (08:29)
[2020-05-04] MEDS: VANCOMYCIN 1GM+NS 250ML 250 ML IV SCH ×2 (08:29→21:12)
[2020-05-04] MEDS: INSULIN GLARGINE 100 UNITS/ML 10 ML VIAL SQ SCH (08:36)
[2020-05-04] MEDS: LACTULOSE 20 GM/30 ML UDCUP GT SCH (09:30)
[2020-05-04] MEDS: ZINC SULFATE 220 CAPSULE PO SCH (10:35)
[2020-05-04] MEDS: MIDAZOLAM 100MG-0.9% NS 100ML 100ML BAG IV PRN (10:37)
[2020-05-04] MEDS ORDERED: KETAMINE IV SCH (18:30)
[2020-05-04] MEDS ORDERED: SODIUM CHLORIDE 0.9% IV SCH (18:30)
[2020-05-05] VITALS (70 sets, daily range): BP systolic 77–146; BP diastolic 39–87
[2020-05-05] MEDS: INSULIN HUMULIN R 100 UNIT/ML 3ML SQ SCH ×4 (00:15→18:16)
[2020-05-05] MEDS: MEROPENEM 1 GM VIAL IVP SCH ×3 (00:17→16:53)
[2020-05-05] MEDS: VECURONIUM 50MG/NS 50ML IV SCH ×4 (00:47→16:54)
[2020-05-05] MEDS: MIDAZOLAM 100MG-0.9% NS 100ML 100ML BAG IV PRN ×2 (00:50→12:26)
[2020-05-05] MEDS: FENTANYL 2500MCG+NS 250ML 250 ML IV SCH ×3 (02:08→23:21)
[2020-05-05 03:16] LABS: ABG BASE EXCESS 5.6 mmol/L (-2.0-3.0); ABG OXYGEN SATURATION 90.4 % (95.0-99.0); ABG PCO2 48 mmHg (35-48)
[2020-05-05] MEDS: PROPOFOL 1000 MG/100 ML IV PRN ×4 (04:02→21:07)
[2020-05-05 04:45] LABS: BASOPHILS % (AUTO) 0.2 % (0.0-5.0); EOSINOPHILS % (AUTO) 0.3 % (0.0-8.0); HEMATOCRIT 36.5 % (42-54); MEAN CORPUSCULAR HEMOGLOBIN 28.9 pg (27.0-33.0); MEAN CORPUSCULAR HGB CONC 31.8 g/dL (32.0-36.0); MONOCYTES % (AUTO) 5.1 % (3.0-13.0); NEUTROPHILS % (AUTO) 88.7 % (40.0-77.0); PLATELET COUNT (AUTO) 158 K/uL (130-400); RED BLOOD CELL COUNT(AUTO) 4.01 MIL/uL (4.50-6.20); RED CELL DISTRIBUTION WIDTH 14.3 % (11.0-15.5); WHITE BLOOD COUNT (AUTO) 16.7 K/uL (4.8-10.8)
[2020-05-05 05:02] LABS: CREATININE 0.6 mg/dL (0.5-1.5); POTASSIUM 4.7 mmol/L (3.5-5.1)
[2020-05-05 05:17] LABS: PLATELET MORPHOLOGY PLT CLUMPS PRESENT
[2020-05-05] MEDS: DOCUSATE NA 100MG/10ML UDCUP NG SCH ×3 (05:19→23:22)
[2020-05-05] MEDS: ASCORBIC ACID 500 MG TAB PO SCH ×3 (05:19→21:20)
[2020-05-05 06:55] LABS: CRP QUANTITATIVE 80.2 mg/L (0.00-9.0)
[2020-05-05] MEDS: FLUCONAZOLE 200 MG/NS 100 ML 100 ML IV SCH (08:28)
[2020-05-05] MEDS: VANCOMYCIN 1GM+NS 250ML 250 ML IV SCH ×2 (08:29→21:19)
[2020-05-05] MEDS: POLYETHYLENE GLYCOL 3350 17 GM POWD.PACK PO SCH (08:29)
[2020-05-05] MEDS: SENNOSIDES 8.6 MG TABLET PO SCH (08:30)
[2020-05-05] MEDS: FAMOTIDINE/PF 20 MG/2 ML VIAL IV SCH ×2 (08:30→21:20)
[2020-05-05] MEDS: THIAMINE HCL 100 MG/ML 2ML VIAL IVP SCH (08:30)
[2020-05-05] MEDS: MIDODRINE HCL 5 MG TABLET GT SCH ×3 (08:30→21:20)
[2020-05-05] MEDS: ENOXAPARIN SODIUM 40 MG/0.4 ML SYRINGE SQ SCH ×2 (08:30→21:19)
[2020-05-05] MEDS: DIPYRIDAMOLE 25 MG TABLET PO SCH (08:31)
[2020-05-05] MEDS: METHYLPREDNISOLONE SOD SUCC 40MG/ML 1ML IVP SCH (08:31)
[2020-05-05] MEDS: INSULIN GLARGINE 100 UNITS/ML 10 ML VIAL SQ SCH (08:33)
[2020-05-05] MEDS: LACTULOSE 20 GM/30 ML UDCUP GT SCH (09:30)
[2020-05-05] MEDS: ZINC SULFATE 220 CAPSULE PO SCH (10:19)
[2020-05-05] MEDS: NOREPINEPHRINE 4MG/NS 250ML 250 ML IV SCH ×2 (11:29→19:09)
[2020-05-05] MEDS: FUROSEMIDE 10 MG/ML 2ML VIAL IV SCH ×3 (11:38→23:22)
[2020-05-06] VITALS (79 sets, daily range): BP systolic 95–153; BP diastolic 61–89
[2020-05-06] MEDS: INSULIN HUMULIN R 100 UNIT/ML 3ML SQ SCH ×4 (00:44→17:26)
[2020-05-06] MEDS: MEROPENEM 1 GM VIAL IVP SCH ×3 (00:57→16:35)
[2020-05-06] MEDS: NOREPINEPHRINE 4MG/NS 250ML 250 ML IV SCH ×3 (01:01→21:13)
[2020-05-06 03:24] LABS: ABG BASE EXCESS 10.7 mmol/L (-2.0-3.0); ABG HCO3 35.7 mmol/L (21.0-28.0); ABG OXYGEN SATURATION 88.5 % (95.0-99.0); ABG PCO2 48 mmHg (35-48)
[2020-05-06] MEDS: ASCORBIC ACID 500 MG TAB PO SCH ×3 (03:32→18:33)
[2020-05-06] MEDS: DOCUSATE NA 100MG/10ML UDCUP NG SCH ×3 (05:18→21:14)
[2020-05-06] MEDS: FUROSEMIDE 10 MG/ML 2ML VIAL IV SCH ×3 (05:18→21:15)
[2020-05-06] MEDS: MIDAZOLAM 100MG-0.9% NS 100ML 100ML BAG IV PRN ×2 (05:37→18:35)
[2020-05-06 06:01] LABS: BASOPHILS % (AUTO) 0.3 % (0.0-5.0); EOSINOPHILS % (AUTO) 1.3 % (0.0-8.0); HEMATOCRIT 40.5 % (42-54); LYMPHOCYTES % (AUTO) 6.5 % (21.0-51.0); MEAN CORPUSCULAR HEMOGLOBIN 28.8 pg (27.0-33.0); MEAN CORPUSCULAR HGB CONC 31.9 g/dL (32.0-36.0); MEAN CORPUSCULAR VOLUME 90.4 fL (79-99); MONOCYTES % (AUTO) 4.1 % (3.0-13.0); NEUTROPHILS % (AUTO) 86.1 % (40.0-77.0); PLATELET COUNT (AUTO) 378 K/uL (130-400); RED BLOOD CELL COUNT(AUTO) 4.48 MIL/uL (4.50-6.20); RED CELL DISTRIBUTION WIDTH 14.2 % (11.0-15.5); WHITE BLOOD COUNT (AUTO) 16.8 K/uL (4.8-10.8)
[2020-05-06 06:15] LABS: CREATININE 0.7 mg/dL (0.5-1.5); POTASSIUM 3.8 mmol/L (3.5-5.1)
[2020-05-06] MEDS: POTASSIUM CHLORIDE 20MEQ/100ML 100 ML IV PRN (06:27)
[2020-05-06] MEDS: PROPOFOL 1000 MG/100 ML IV PRN ×3 (06:41→18:33)
[2020-05-06] MEDS: VECURONIUM 50MG/NS 50ML IV SCH ×4 (08:30→18:34)
[2020-05-06] MEDS: FLUCONAZOLE 200 MG/NS 100 ML 100 ML IV SCH (08:34)
[2020-05-06] MEDS: DIPYRIDAMOLE 25 MG TABLET PO SCH (08:34)
[2020-05-06] MEDS: POLYETHYLENE GLYCOL 3350 17 GM POWD.PACK PO SCH (08:34)
[2020-05-06] MEDS: FAMOTIDINE/PF 20 MG/2 ML VIAL IV SCH ×2 (08:35→21:15)
[2020-05-06] MEDS: VANCOMYCIN 1GM+NS 250ML 250 ML IV SCH ×2 (08:35→21:14)
[2020-05-06] MEDS: MIDODRINE HCL 5 MG TABLET GT SCH ×3 (08:35→21:15)
[2020-05-06] MEDS: METHYLPREDNISOLONE SOD SUCC 125MG/2ML VIAL IVP SCH ×2 (08:35→08:38)
[2020-05-06] MEDS: SENNOSIDES 8.6 MG TABLET PO SCH (08:35)
[2020-05-06] MEDS: THIAMINE HCL 100 MG/ML 2ML VIAL IVP SCH (08:35)
[2020-05-06] MEDS: ENOXAPARIN SODIUM 40 MG/0.4 ML SYRINGE SQ SCH ×2 (08:36→21:16)
[2020-05-06] MEDS: INSULIN GLARGINE 100 UNITS/ML 10 ML VIAL SQ SCH (08:37)
[2020-05-06] MEDS: LACTULOSE 20 GM/30 ML UDCUP GT SCH (09:30)
[2020-05-06] MEDS: ZINC SULFATE 220 CAPSULE PO SCH (11:26)
[2020-05-06] MEDS: FENTANYL 2500MCG+NS 250ML 250 ML IV SCH ×2 (11:30→23:05)
[2020-05-07] VITALS (78 sets, daily range): BP systolic 92–130; BP diastolic 52–82
[2020-05-07] MEDS: INSULIN HUMULIN R 100 UNIT/ML 3ML SQ SCH ×4 (00:17→17:26)
[2020-05-07] MEDS: MEROPENEM 1 GM VIAL IVP SCH ×3 (00:18→16:53)
[2020-05-07] MEDS: PROPOFOL 1000 MG/100 ML IV PRN ×2 (03:37→18:20)
[2020-05-07] MEDS: ASCORBIC ACID 500 MG TAB PO SCH ×3 (03:37→21:21)
[2020-05-07] MEDS: NOREPINEPHRINE 4MG/NS 250ML 250 ML IV SCH ×3 (03:39→20:55)
[2020-05-07] MEDS: FUROSEMIDE 10 MG/ML 2ML VIAL IV SCH ×3 (05:30→21:22)
[2020-05-07] MEDS: DOCUSATE NA 100MG/10ML UDCUP NG SCH ×3 (05:30→21:21)
[2020-05-07 06:31] LABS: BASOPHILS % (AUTO) 0.6 % (0.0-5.0); EOSINOPHILS % (AUTO) 1.2 % (0.0-8.0); HEMATOCRIT 42.2 % (42-54); LYMPHOCYTES % (AUTO) 6.3 % (21.0-51.0); MEAN CORPUSCULAR HEMOGLOBIN 29.3 pg (27.0-33.0); MEAN CORPUSCULAR HGB CONC 31.3 g/dL (32.0-36.0); MEAN CORPUSCULAR VOLUME 93.6 fL (79-99); MONOCYTES % (AUTO) 4.8 % (3.0-13.0); NEUTROPHILS % (AUTO) 84.9 % (40.0-77.0); NUCLEATED RED BLOOD CELLS 0.3 % (0.0-0.19); PLATELET COUNT (AUTO) 282 K/uL (130-400); RED BLOOD CELL COUNT(AUTO) 4.51 MIL/uL (4.50-6.20); RED CELL DISTRIBUTION WIDTH 14.3 % (11.0-15.5); WHITE BLOOD COUNT (AUTO) 15.6 K/uL (4.8-10.8)
[2020-05-07 06:53] LABS: CREATININE 0.7 mg/dL (0.5-1.5); POTASSIUM 3.9 mmol/L (3.5-5.1)
[2020-05-07] MEDS: MIDAZOLAM 100MG-0.9% NS 100ML 100ML BAG IV PRN ×2 (07:53→20:56)
[2020-05-07] MEDS: VECURONIUM 50MG/NS 50ML IV SCH ×4 (07:55→22:41)
[2020-05-07] MEDS: ENOXAPARIN SODIUM 40 MG/0.4 ML SYRINGE SQ SCH ×2 (08:18→21:23)
[2020-05-07] MEDS: POLYETHYLENE GLYCOL 3350 17 GM POWD.PACK PO SCH (08:18)
[2020-05-07] MEDS: FLUCONAZOLE 200 MG/NS 100 ML 100 ML IV SCH (08:18)
[2020-05-07] MEDS: SENNOSIDES 8.6 MG TABLET PO SCH (08:18)
[2020-05-07] MEDS: FAMOTIDINE/PF 20 MG/2 ML VIAL IV SCH ×2 (08:18→21:22)
[2020-05-07] MEDS: METHYLPREDNISOLONE SOD SUCC 125MG/2ML VIAL IVP SCH (08:18)
[2020-05-07] MEDS: MIDODRINE HCL 5 MG TABLET GT SCH ×3 (08:18→21:21)
[2020-05-07] MEDS: THIAMINE HCL 100 MG/ML 2ML VIAL IVP SCH (08:18)
[2020-05-07] MEDS: VANCOMYCIN 1GM+NS 250ML 250 ML IV SCH (08:19)
[2020-05-07] MEDS: DIPYRIDAMOLE 25 MG TABLET PO SCH (08:24)
[2020-05-07] MEDS: INSULIN GLARGINE 100 UNITS/ML 10 ML VIAL SQ SCH (08:28)
[2020-05-07] MEDS: LACTULOSE 20 GM/30 ML UDCUP GT SCH (09:34)
[2020-05-07] MEDS ORDERED: COMPOUND IV REFRIGERATED 1 EACH IVSOLN MISC PRN (11:15)
[2020-05-07] MEDS: ZINC SULFATE 220 CAPSULE PO SCH (11:17)
[2020-05-07] MEDS: FENTANYL 2500MCG+NS 250ML 250 ML IV SCH (14:21)
[2020-05-07 15:49] LABS: ABG BASE EXCESS 6.1 mmol/L (-2.0-3.0); ABG HCO3 33.4 mmol/L (21.0-28.0); ABG OXYGEN SATURATION 85.6 % (95.0-99.0); ABG PCO2 60 mmHg (35-48)
[2020-05-07] MEDS: SODIUM CHLORIDE 0.9% IV SCH ×2 (16:15→20:54)
[2020-05-07] MEDS: KETAMINE IV SCH ×2 (16:15→20:54)
[2020-05-07] MEDS: VANCOMYCIN 750MG + NS 250 ML IV SCH ×2 (22:38)
[2020-05-08] VITALS (39 sets, daily range): BP systolic 86–123; BP diastolic 54–79
[2020-05-08] MEDS: MEROPENEM 1 GM VIAL IVP SCH ×3 (00:23→16:49)
[2020-05-08] MEDS: INSULIN HUMULIN R 100 UNIT/ML 3ML SQ SCH ×4 (00:24→18:28)
[2020-05-08] MEDS: PROPOFOL 1000 MG/100 ML IV PRN ×4 (00:28→22:19)
[2020-05-08] MEDS ORDERED: DILTIAZEM 125MG+100 ML NS 125 ML IV PRN (03:15)
[2020-05-08] MEDS: ASCORBIC ACID 500 MG TAB PO SCH ×3 (03:38→22:25)
[2020-05-08 04:16] LABS: MAGNESIUM 2.2 mg/dL (1.80-2.40)
[2020-05-08] MEDS: DOCUSATE NA 100MG/10ML UDCUP NG SCH ×3 (05:51→22:00)
[2020-05-08 05:56] LABS: BASOPHILS % (AUTO) 0.4 % (0.0-5.0); EOSINOPHILS % (AUTO) 1.2 % (0.0-8.0); HEMATOCRIT 40.1 % (42-54); MEAN CORPUSCULAR HEMOGLOBIN 28.7 pg (27.0-33.0); MEAN CORPUSCULAR HGB CONC 30.7 g/dL (32.0-36.0); MEAN CORPUSCULAR VOLUME 93.7 fL (79-99); MONOCYTES % (AUTO) 4.8 % (3.0-13.0); NEUTROPHILS % (AUTO) 83.7 % (40.0-77.0); NUCLEATED RED BLOOD CELLS 0.3 % (0.0-0.19); PLATELET COUNT (AUTO) 393 K/uL (130-400); RED BLOOD CELL COUNT(AUTO) 4.28 MIL/uL (4.50-6.20); RED CELL DISTRIBUTION WIDTH 14.6 % (11.0-15.5); WHITE BLOOD COUNT (AUTO) 14.7 K/uL (4.8-10.8)
[2020-05-08] MEDS: FUROSEMIDE 10 MG/ML 2ML VIAL IV SCH ×3 (05:57→22:20)
[2020-05-08 06:07] LABS: CREATININE 0.6 mg/dL (0.5-1.5); POTASSIUM 4.1 mmol/L (3.5-5.1)
[2020-05-08 06:38] LABS: ABG BASE EXCESS 10.2 mmol/L (-2.0-3.0); ABG HCO3 36.9 mmol/L (21.0-28.0); ABG OXYGEN SATURATION 89.7 % (95.0-99.0); ABG PCO2 58 mmHg (35-48)
[2020-05-08] MEDS ORDERED: SODIUM CHLORIDE 0.9% 100 ML IV ONE (08:51)
[2020-05-08] MEDS: FLUCONAZOLE 200 MG/NS 100 ML 100 ML IV SCH (09:15)
[2020-05-08] MEDS: VANCOMYCIN 750MG + NS 250 ML IV SCH ×4 (09:15→22:26)
[2020-05-08] MEDS ORDERED: COMPOUND NARC IV MISC 1 EACH IVSOLN MISC PRN (09:15)
[2020-05-08] MEDS: SODIUM CHLORIDE 0.9% IV SCH ×3 (09:16→17:59)
[2020-05-08] MEDS: KETAMINE IV SCH ×3 (09:16→17:59)
[2020-05-08] MEDS: POLYETHYLENE GLYCOL 3350 17 GM POWD.PACK PO SCH (09:17)
[2020-05-08] MEDS: METHYLPREDNISOLONE SOD SUCC 125MG/2ML VIAL IVP SCH ×2 (09:17→22:27)
[2020-05-08] MEDS: FAMOTIDINE/PF 20 MG/2 ML VIAL IV SCH ×2 (09:17→22:20)
[2020-05-08] MEDS: SENNOSIDES 8.6 MG TABLET PO SCH (09:17)
[2020-05-08] MEDS: THIAMINE HCL 100 MG/ML 2ML VIAL IVP SCH (09:18)
[2020-05-08] MEDS: MIDODRINE HCL 5 MG TABLET GT SCH ×3 (09:18→22:33)
[2020-05-08] MEDS: INSULIN GLARGINE 100 UNITS/ML 10 ML VIAL SQ SCH (09:22)
[2020-05-08] MEDS: DIPYRIDAMOLE 25 MG TABLET PO SCH (09:22)
[2020-05-08] MEDS ORDERED: PHARMACY COMMUNICATION MISC SCH (09:30)
[2020-05-08] MEDS ORDERED: ALBUMIN (HUMAN) 25% 50 ML IV SCH (09:45)
[2020-05-08] MEDS ORDERED: ACETAZOLAMIDE SODIUM 500 MG VIAL IV SCH (09:45)
[2020-05-08] MEDS ORDERED: VECURONIUM BROMIDE 10 MG ML IV PRN (09:45)
[2020-05-08] MEDS: VECURONIUM 50MG/NS 50ML IV SCH ×4 (10:10→18:58)
[2020-05-08] MEDS: MIDAZOLAM 100MG-0.9% NS 100ML 100ML BAG IV PRN ×2 (10:10→23:31)
[2020-05-08] MEDS: LACTULOSE 20 GM/30 ML UDCUP GT SCH (10:22)
[2020-05-08] MEDS: ENOXAPARIN SODIUM 40 MG/0.4 ML SYRINGE SQ SCH ×2 (10:22→22:23)
[2020-05-08] MEDS: ZINC SULFATE 220 CAPSULE PO SCH (12:26)
[2020-05-08] MEDS: NOREPINEPHRINE 4MG/NS 250ML 250 ML IV SCH (18:36)
[2020-05-09] VITALS (52 sets, daily range): BP systolic 86–134; BP diastolic 49–79
[2020-05-09] MEDS: SODIUM CHLORIDE 0.9% IV SCH ×3 (00:16→12:01)
[2020-05-09] MEDS: KETAMINE IV SCH ×3 (00:16→12:01)
[2020-05-09] MEDS: INSULIN HUMULIN R 100 UNIT/ML 3ML SQ SCH ×4 (00:17→17:00)
[2020-05-09] MEDS: MEROPENEM 1 GM VIAL IVP SCH ×3 (00:20→16:35)
[2020-05-09] MEDS: ASCORBIC ACID 500 MG TAB PO SCH ×3 (03:07→20:29)
[2020-05-09] MEDS: PROPOFOL 1000 MG/100 ML IV PRN ×4 (03:08→18:05)
[2020-05-09 04:53] LABS: BASOPHILS % (AUTO) 0.4 % (0.0-5.0); EOSINOPHILS % (AUTO) 0.1 % (0.0-8.0); HEMATOCRIT 41.1 % (42-54); LYMPHOCYTES % (AUTO) 2.7 % (21.0-51.0); MEAN CORPUSCULAR HEMOGLOBIN 29.2 pg (27.0-33.0); MEAN CORPUSCULAR HGB CONC 31.1 g/dL (32.0-36.0); MEAN CORPUSCULAR VOLUME 93.6 fL (79-99); MONOCYTES % (AUTO) 1.4 % (3.0-13.0); NEUTROPHILS % (AUTO) 91.2 % (40.0-77.0); PLATELET COUNT (AUTO) 362 K/uL (130-400); RED BLOOD CELL COUNT(AUTO) 4.39 MIL/uL (4.50-6.20); RED CELL DISTRIBUTION WIDTH 14.6 % (11.0-15.5); WHITE BLOOD COUNT (AUTO) 12.9 K/uL (4.8-10.8)
[2020-05-09] MEDS: FUROSEMIDE 10 MG/ML 2ML VIAL IV SCH ×3 (05:05→20:32)
[2020-05-09] MEDS: DOCUSATE NA 100MG/10ML UDCUP NG SCH ×3 (05:05→20:31)
[2020-05-09] MEDS: NOREPINEPHRINE 4MG/NS 250ML 250 ML IV SCH (05:07)
[2020-05-09 05:17] LABS: ALBUMIN 1.7 g/dL (3.5-5.0); BILIRUBIN,TOTAL 0.4 mg/dL (0.2-1.0); CREATININE 0.5 mg/dL (0.5-1.5); CRP QUANTITATIVE 50.6 mg/L (0.00-9.0); POTASSIUM 4.5 mmol/L (3.5-5.1); TOTAL PROTEIN, SERUM 6.2 g/dL (6.0-8.3)
[2020-05-09 06:47] LABS: ABG BASE EXCESS 8.9 mmol/L (-2.0-3.0); ABG HCO3 37.7 mmol/L (21.0-28.0); ABG PCO2 71 mmHg (35-48)
[2020-05-09] MEDS: ENOXAPARIN SODIUM 40 MG/0.4 ML SYRINGE SQ SCH ×2 (08:28→20:30)
[2020-05-09] MEDS: METHYLPREDNISOLONE SOD SUCC 125MG/2ML VIAL IVP SCH ×2 (08:28→20:29)
[2020-05-09] MEDS: FAMOTIDINE/PF 20 MG/2 ML VIAL IV SCH ×2 (08:28→20:28)
[2020-05-09] MEDS: FLUCONAZOLE 200 MG/NS 100 ML 100 ML IV SCH (08:28)
[2020-05-09] MEDS: THIAMINE HCL 100 MG/ML 2ML VIAL IVP SCH (08:28)
[2020-05-09] MEDS: MIDODRINE HCL 5 MG TABLET GT SCH ×3 (08:29→20:29)
[2020-05-09] MEDS: DIPYRIDAMOLE 25 MG TABLET PO SCH (08:29)
[2020-05-09] MEDS: POLYETHYLENE GLYCOL 3350 17 GM POWD.PACK PO SCH (09:00)
[2020-05-09] MEDS: SENNOSIDES 8.6 MG TABLET PO SCH (09:00)
[2020-05-09] MEDS: INSULIN GLARGINE 100 UNITS/ML 10 ML VIAL SQ SCH (09:09)
[2020-05-09] MEDS: LACTULOSE 20 GM/30 ML UDCUP GT SCH (09:19)
[2020-05-09] MEDS: ZINC SULFATE 220 CAPSULE PO SCH (10:57)
[2020-05-09] MEDS: VANCOMYCIN 750MG + NS 250 ML IV SCH ×4 (10:57→20:29)
[2020-05-09] MEDS: MIDAZOLAM 100MG-0.9% NS 100ML 100ML BAG IV PRN ×2 (11:00→21:31)
[2020-05-10] VITALS (55 sets, daily range): BP systolic 90–169; BP diastolic 41–79
[2020-05-10] MEDS: MEROPENEM 1 GM VIAL IVP SCH ×3 (00:50→16:54)
[2020-05-10] MEDS: INSULIN HUMULIN R 100 UNIT/ML 3ML SQ SCH ×4 (00:51→18:18)
[2020-05-10] MEDS: KETAMINE IV SCH (00:59)
[2020-05-10] MEDS: SODIUM CHLORIDE 0.9% IV SCH (00:59)
[2020-05-10] MEDS: NOREPINEPHRINE 4MG/NS 250ML 250 ML IV SCH ×2 (01:06→16:57)
[2020-05-10] MEDS: ASCORBIC ACID 500 MG TAB PO SCH ×3 (03:49→18:47)
[2020-05-10 05:37] LABS: BASOPHILS % (AUTO) 0.3 % (0.0-5.0); HEMATOCRIT 38.1 % (42-54); LYMPHOCYTES % (AUTO) 2.8 % (21.0-51.0); MEAN CORPUSCULAR HEMOGLOBIN 28.6 pg (27.0-33.0); MEAN CORPUSCULAR HGB CONC 31.2 g/dL (32.0-36.0); MEAN CORPUSCULAR VOLUME 91.6 fL (79-99); MONOCYTES % (AUTO) 2.1 % (3.0-13.0); NEUTROPHILS % (AUTO) 90.8 % (40.0-77.0); PLATELET COUNT (AUTO) 406 K/uL (130-400); RED BLOOD CELL COUNT(AUTO) 4.16 MIL/uL (4.50-6.20); RED CELL DISTRIBUTION WIDTH 14.9 % (11.0-15.5); WHITE BLOOD COUNT (AUTO) 15.9 K/uL (4.8-10.8)
[2020-05-10 05:52] LABS: ALBUMIN 1.8 g/dL (3.5-5.0); BILIRUBIN,TOTAL 0.3 mg/dL (0.2-1.0); CREATININE 0.6 mg/dL (0.5-1.5); CRP QUANTITATIVE 21.5 mg/L (0.00-9.0); TOTAL PROTEIN, SERUM 5.6 g/dL (6.0-8.3)
[2020-05-10] MEDS: DOCUSATE NA 100MG/10ML UDCUP NG SCH ×3 (06:00→20:53)
[2020-05-10] MEDS: FUROSEMIDE 10 MG/ML 2ML VIAL IV SCH ×3 (06:12→20:52)
[2020-05-10 06:39] LABS: ABG BASE EXCESS 8.6 mmol/L (-2.0-3.0); ABG PCO2 55 mmHg (35-48)
[2020-05-10] MEDS: VANCOMYCIN 750MG + NS 250 ML IV SCH ×4 (08:12→20:55)
[2020-05-10] MEDS: MIDODRINE HCL 5 MG TABLET GT SCH ×3 (08:13→20:51)
[2020-05-10] MEDS: FLUCONAZOLE 200 MG/NS 100 ML 100 ML IV SCH (08:13)
[2020-05-10] MEDS: DIPYRIDAMOLE 25 MG TABLET PO SCH (08:13)
[2020-05-10] MEDS: FAMOTIDINE/PF 20 MG/2 ML VIAL IV SCH ×2 (08:14→20:51)
[2020-05-10] MEDS: METHYLPREDNISOLONE SOD SUCC 125MG/2ML VIAL IVP SCH ×2 (08:14→20:51)
[2020-05-10] MEDS: THIAMINE HCL 100 MG/ML 2ML VIAL IVP SCH (08:14)
[2020-05-10] MEDS: SENNOSIDES 8.6 MG TABLET PO SCH (08:14)
[2020-05-10] MEDS: ENOXAPARIN SODIUM 40 MG/0.4 ML SYRINGE SQ SCH ×2 (08:15→20:52)
[2020-05-10] MEDS: INSULIN GLARGINE 100 UNITS/ML 10 ML VIAL SQ SCH (10:02)
[2020-05-10] MEDS: MIDAZOLAM 100MG-0.9% NS 100ML 100ML BAG IV PRN ×2 (10:03→16:56)
[2020-05-10] MEDS: ZINC SULFATE 220 CAPSULE PO SCH (11:49)
[2020-05-10] MEDS: PROPOFOL 1000 MG/100 ML IV PRN ×2 (12:42→16:54)
[2020-05-10] MEDS ORDERED: KETAMINE IV SCH (12:57)
[2020-05-10] MEDS ORDERED: SODIUM CHLORIDE 0.9% IV SCH (12:57)
[2020-05-11] VITALS (49 sets, daily range): BP systolic 99–134; BP diastolic 50–69
[2020-05-11] MEDS: INSULIN HUMULIN R 100 UNIT/ML 3ML SQ SCH ×5 (00:57→23:48)
[2020-05-11] MEDS: MEROPENEM 1 GM VIAL IVP SCH (00:58)
[2020-05-11] MEDS: PROPOFOL 1000 MG/100 ML IV PRN ×3 (01:20→14:53)
[2020-05-11] MEDS: ASCORBIC ACID 500 MG TAB PO SCH ×3 (03:02→21:21)
[2020-05-11 05:33] LABS: BASOPHILS % (AUTO) 0.4 % (0.0-5.0); LYMPHOCYTES % (AUTO) 2.3 % (21.0-51.0); MEAN CORPUSCULAR HEMOGLOBIN 29.2 pg (27.0-33.0); MEAN CORPUSCULAR HGB CONC 31.1 g/dL (32.0-36.0); MEAN CORPUSCULAR VOLUME 93.8 fL (79-99); MONOCYTES % (AUTO) 2.1 % (3.0-13.0); NEUTROPHILS % (AUTO) 89.9 % (40.0-77.0); NUCLEATED RED BLOOD CELLS 0.1 % (0.0-0.19); PLATELET COUNT (AUTO) 372 K/uL (130-400); RED BLOOD CELL COUNT(AUTO) 3.73 MIL/uL (4.50-6.20); RED CELL DISTRIBUTION WIDTH 15.1 % (11.0-15.5); WHITE BLOOD COUNT (AUTO) 13.5 K/uL (4.8-10.8)
[2020-05-11 05:40] LABS: CREATININE 0.6 mg/dL (0.5-1.5); POTASSIUM 4.1 mmol/L (3.5-5.1)
[2020-05-11] MEDS: DOCUSATE NA 100MG/10ML UDCUP NG SCH ×3 (05:55→21:57)
[2020-05-11] MEDS: FUROSEMIDE 10 MG/ML 2ML VIAL IV SCH ×3 (05:56→21:56)
[2020-05-11 07:03] LABS: ABG BASE EXCESS 11.1 mmol/L (-2.0-3.0); ABG HCO3 38.4 mmol/L (21.0-28.0); ABG PCO2 65 mmHg (35-48)
[2020-05-11] MEDS: SENNOSIDES 8.6 MG TABLET PO SCH (08:32)
[2020-05-11] MEDS: METHYLPREDNISOLONE SOD SUCC 125MG/2ML VIAL IVP SCH ×2 (08:32→21:23)
[2020-05-11] MEDS: FLUCONAZOLE 200 MG/NS 100 ML 100 ML IV SCH (08:32)
[2020-05-11] MEDS: MIDODRINE HCL 5 MG TABLET GT SCH ×3 (08:32→21:21)
[2020-05-11] MEDS: THIAMINE HCL 100 MG/ML 2ML VIAL IVP SCH (08:33)
[2020-05-11] MEDS: FAMOTIDINE/PF 20 MG/2 ML VIAL IV SCH ×2 (08:33→21:22)
[2020-05-11] MEDS: ENOXAPARIN SODIUM 40 MG/0.4 ML SYRINGE SQ SCH ×2 (08:34→21:27)
[2020-05-11] MEDS: DIPYRIDAMOLE 25 MG TABLET PO SCH (08:35)
[2020-05-11] MEDS: INSULIN GLARGINE 100 UNITS/ML 10 ML VIAL SQ SCH (08:37)
[2020-05-11] MEDS: VANCOMYCIN 750MG + NS 250 ML IV SCH ×4 (10:46→21:55)
[2020-05-11] MEDS ORDERED: VANCOMYCIN 750MG + NS 250 ML IV SCH ×2 (11:00)
[2020-05-11] MEDS: ZINC SULFATE 220 CAPSULE PO SCH (11:38)
[2020-05-11] MEDS ORDERED: VANCOMYCIN 1GM+NS 250ML 250 ML IV SCH (12:00)
[2020-05-11] MEDS: MIDAZOLAM 100MG-0.9% NS 100ML 100ML BAG IV PRN (14:54)
[2020-05-11] MEDS: VECURONIUM 50MG/NS 50ML IV SCH ×2 (15:02)
[2020-05-11] MEDS: SODIUM CHLORIDE 0.9% IV SCH ×2 (16:35→23:24)
[2020-05-11] MEDS: KETAMINE IV SCH ×2 (16:35→23:24)
[2020-05-12] VITALS (51 sets, daily range): BP systolic 104–161; BP diastolic 48–73
[2020-05-12] MEDS: PROPOFOL 1000 MG/100 ML IV PRN ×5 (01:32→23:58)
[2020-05-12] MEDS: ASCORBIC ACID 500 MG TAB PO SCH ×3 (04:20→18:31)
[2020-05-12] MEDS: KETAMINE IV SCH ×4 (04:33→21:07)
[2020-05-12] MEDS: SODIUM CHLORIDE 0.9% IV SCH ×4 (04:33→21:07)
[2020-05-12 04:58] LABS: PROTHROMBIN TIME 10.9 SEC (9.6-11.6)
[2020-05-12 05:00] LABS: PARTIAL THROMBOPLASTIN TIME 24.3 SEC (26.3-35.5)
[2020-05-12 05:28] LABS: BASOPHILS % (AUTO) 0.4 % (0.0-5.0); EOSINOPHILS % (AUTO) 1.2 % (0.0-8.0); HEMATOCRIT 35.1 % (42-54); LYMPHOCYTES % (AUTO) 2.7 % (21.0-51.0); MEAN CORPUSCULAR HEMOGLOBIN 29.3 pg (27.0-33.0); MEAN CORPUSCULAR HGB CONC 30.8 g/dL (32.0-36.0); MEAN CORPUSCULAR VOLUME 95.4 fL (79-99); MONOCYTES % (AUTO) 1.9 % (3.0-13.0); NEUTROPHILS % (AUTO) 88.4 % (40.0-77.0); NUCLEATED RED BLOOD CELLS 0.3 % (0.0-0.19); PLATELET COUNT (AUTO) 364 K/uL (130-400); RED BLOOD CELL COUNT(AUTO) 3.68 MIL/uL (4.50-6.20); RED CELL DISTRIBUTION WIDTH 15.5 % (11.0-15.5); WHITE BLOOD COUNT (AUTO) 14.8 K/uL (4.8-10.8)
[2020-05-12 05:52] LABS: BILIRUBIN,TOTAL 0.3 mg/dL (0.2-1.0); CREATININE 0.5 mg/dL (0.5-1.5); POTASSIUM 4.6 mmol/L (3.5-5.1); TOTAL PROTEIN, SERUM 5.1 g/dL (6.0-8.3)
[2020-05-12] MEDS: INSULIN HUMULIN R 100 UNIT/ML 3ML SQ SCH ×3 (06:00→17:19)
[2020-05-12] MEDS: NOREPINEPHRINE 4MG/NS 250ML 250 ML IV SCH (06:27)
[2020-05-12] MEDS: MIDAZOLAM 100MG-0.9% NS 100ML 100ML BAG IV PRN ×2 (06:28→15:47)
[2020-05-12] MEDS: DOCUSATE NA 100MG/10ML UDCUP NG SCH ×3 (06:29→22:39)
[2020-05-12] MEDS: FUROSEMIDE 10 MG/ML 2ML VIAL IV SCH ×3 (06:29→22:39)
[2020-05-12 06:58] LABS: ABG BASE EXCESS 12.5 mmol/L (-2.0-3.0); ABG HCO3 40.5 mmol/L (21.0-28.0); ABG OXYGEN SATURATION 88.6 % (95.0-99.0); ABG PCO2 66 mmHg (35-48)
[2020-05-12] MEDS: INSULIN GLARGINE 100 UNITS/ML 10 ML VIAL SQ SCH (07:30)
[2020-05-12] MEDS: VECURONIUM 50MG/NS 50ML IV SCH ×8 (08:00→23:56)
[2020-05-12] MEDS: SENNOSIDES 8.6 MG TABLET PO SCH (08:24)
[2020-05-12] MEDS: DIPYRIDAMOLE 25 MG TABLET PO SCH (08:24)
[2020-05-12] MEDS: FLUCONAZOLE 200 MG/NS 100 ML 100 ML IV SCH (08:24)
[2020-05-12] MEDS: THIAMINE HCL 100 MG/ML 2ML VIAL IVP SCH (08:24)
[2020-05-12] MEDS: METHYLPREDNISOLONE SOD SUCC 125MG/2ML VIAL IVP SCH ×2 (08:25→21:34)
[2020-05-12] MEDS: MIDODRINE HCL 5 MG TABLET GT SCH ×3 (08:25→21:34)
[2020-05-12] MEDS: ENOXAPARIN SODIUM 40 MG/0.4 ML SYRINGE SQ SCH ×2 (08:26→21:35)
[2020-05-12] MEDS ORDERED: PHARMACY COMMUNICATION MISC SCH (08:30)
[2020-05-12] MEDS ORDERED: ESOMEPRAZOLE SODIUM 40 MG VIAL IV SCH (09:35)
[2020-05-12] MEDS: VANCOMYCIN 750MG + NS 250 ML IV SCH ×4 (10:32→21:45)
[2020-05-12] MEDS: PANTOPRAZOLE 40 MG/VIAL IV SCH ×2 (10:33→21:34)
[2020-05-12] MEDS: ZINC SULFATE 220 CAPSULE PO SCH (10:33)
[2020-05-13] VITALS (28 sets, daily range): BP systolic 106–150; BP diastolic 7–72
[2020-05-13] MEDS: MIDAZOLAM 100MG-0.9% NS 100ML 100ML BAG IV PRN ×2 (01:44→14:10)
[2020-05-13] MEDS: KETAMINE IV SCH ×3 (01:46→22:43)
[2020-05-13] MEDS: SODIUM CHLORIDE 0.9% IV SCH ×3 (01:46→22:43)
[2020-05-13] MEDS: ASCORBIC ACID 500 MG TAB PO SCH ×3 (03:14→20:30)
[2020-05-13] MEDS: FUROSEMIDE 10 MG/ML 2ML VIAL IV SCH ×3 (05:14→21:28)
[2020-05-13] MEDS: DOCUSATE NA 100MG/10ML UDCUP NG SCH ×3 (05:15→21:28)
[2020-05-13] MEDS: PROPOFOL 1000 MG/100 ML IV PRN ×2 (05:57→14:11)
[2020-05-13 06:02] LABS: BASOPHILS % (AUTO) 0.3 % (0.0-5.0); HEMATOCRIT 35.1 % (42-54); LYMPHOCYTES % (AUTO) 2.1 % (21.0-51.0); MEAN CORPUSCULAR HEMOGLOBIN 29.6 pg (27.0-33.0); MEAN CORPUSCULAR HGB CONC 31.3 g/dL (32.0-36.0); MEAN CORPUSCULAR VOLUME 94.4 fL (79-99); MONOCYTES % (AUTO) 2.3 % (3.0-13.0); NEUTROPHILS % (AUTO) 91.4 % (40.0-77.0); NUCLEATED RED BLOOD CELLS 0.3 % (0.0-0.19); PLATELET COUNT (AUTO) 353 K/uL (130-400); RED BLOOD CELL COUNT(AUTO) 3.72 MIL/uL (4.50-6.20); RED CELL DISTRIBUTION WIDTH 15.6 % (11.0-15.5); WHITE BLOOD COUNT (AUTO) 18.6 K/uL (4.8-10.8)
[2020-05-13 06:16] LABS: ALBUMIN 2.1 g/dL (3.5-5.0); BILIRUBIN,TOTAL 0.4 mg/dL (0.2-1.0); CREATININE 0.5 mg/dL (0.5-1.5); POTASSIUM 4.1 mmol/L (3.5-5.1); TOTAL PROTEIN, SERUM 5.7 g/dL (6.0-8.3)
[2020-05-13] MEDS: INSULIN GLARGINE 100 UNITS/ML 10 ML VIAL SQ SCH (06:47)
[2020-05-13] MEDS: INSULIN HUMULIN R 100 UNIT/ML 3ML SQ SCH ×4 (06:48→19:30)
[2020-05-13 07:15] LABS: ABG BASE EXCESS 13.1 mmol/L (-2.0-3.0); ABG HCO3 40.2 mmol/L (21.0-28.0); ABG OXYGEN SATURATION 85.3 % (95.0-99.0); ABG PCO2 63 mmHg (35-48)
[2020-05-13] MEDS: SENNOSIDES 8.6 MG TABLET PO SCH (09:09)
[2020-05-13] MEDS: PANTOPRAZOLE 40 MG/VIAL IV SCH ×2 (09:10→20:30)
[2020-05-13] MEDS: MIDODRINE HCL 5 MG TABLET GT SCH ×3 (09:10→20:53)
[2020-05-13] MEDS: METHYLPREDNISOLONE SOD SUCC 125MG/2ML VIAL IVP SCH (09:10)
[2020-05-13] MEDS: THIAMINE HCL 100 MG/ML 2ML VIAL IVP SCH (09:10)
[2020-05-13] MEDS: ENOXAPARIN SODIUM 40 MG/0.4 ML SYRINGE SQ SCH ×2 (09:11→20:31)
[2020-05-13] MEDS: FLUCONAZOLE 200 MG/NS 100 ML 100 ML IV SCH (09:11)
[2020-05-13] MEDS: DIPYRIDAMOLE 25 MG TABLET PO SCH (09:11)
[2020-05-13] MEDS: VANCOMYCIN 750MG + NS 250 ML IV SCH ×4 (10:56→20:56)
[2020-05-13] MEDS: ZINC SULFATE 220 CAPSULE PO SCH (10:57)
[2020-05-14] VITALS (24 sets, daily range): BP systolic 97–138; BP diastolic 51–71
[2020-05-14] MEDS: PROPOFOL 1000 MG/100 ML IV PRN ×4 (00:52→23:56)
[2020-05-14] MEDS: MIDAZOLAM 100MG-0.9% NS 100ML 100ML BAG IV PRN ×2 (01:00→12:59)
[2020-05-14] MEDS: ASCORBIC ACID 500 MG TAB PO SCH ×3 (02:59→19:23)
[2020-05-14] MEDS: KETAMINE IV SCH (04:59)
[2020-05-14] MEDS: SODIUM CHLORIDE 0.9% IV SCH (04:59)
[2020-05-14] MEDS: VECURONIUM 50MG/NS 50ML IV SCH ×2 (05:01)
[2020-05-14] MEDS: DOCUSATE NA 100MG/10ML UDCUP NG SCH ×3 (05:02→22:08)
[2020-05-14] MEDS: FUROSEMIDE 10 MG/ML 2ML VIAL IV SCH ×3 (05:06→22:07)
[2020-05-14] MEDS: METHYLPREDNISOLONE SOD SUCC 40MG/ML 1ML IVP SCH ×3 (05:14→22:08)
[2020-05-14 05:29] LABS: BASOPHILS % (AUTO) 0.3 % (0.0-5.0); EOSINOPHILS % (AUTO) 1.1 % (0.0-8.0); HEMATOCRIT 37.3 % (42-54); LYMPHOCYTES % (AUTO) 5.4 % (21.0-51.0); MEAN CORPUSCULAR HEMOGLOBIN 29.2 pg (27.0-33.0); MEAN CORPUSCULAR HGB CONC 30.6 g/dL (32.0-36.0); MEAN CORPUSCULAR VOLUME 95.4 fL (79-99); MONOCYTES % (AUTO) 4.4 % (3.0-13.0); NEUTROPHILS % (AUTO) 85.2 % (40.0-77.0); NUCLEATED RED BLOOD CELLS 0.8 % (0.0-0.19); PLATELET COUNT (AUTO) 361 K/uL (130-400); RED BLOOD CELL COUNT(AUTO) 3.91 MIL/uL (4.50-6.20); RED CELL DISTRIBUTION WIDTH 16.6 % (11.0-15.5); WHITE BLOOD COUNT (AUTO) 19.3 K/uL (4.8-10.8)
[2020-05-14 05:30] LABS: ALBUMIN 2.1 g/dL (3.5-5.0); BILIRUBIN,TOTAL 0.5 mg/dL (0.2-1.0); CREATININE 0.5 mg/dL (0.5-1.5); POTASSIUM 4.4 mmol/L (3.5-5.1); TOTAL PROTEIN, SERUM 5.7 g/dL (6.0-8.3)
[2020-05-14] MEDS: INSULIN HUMULIN R 100 UNIT/ML 3ML SQ SCH ×4 (06:50→17:42)
[2020-05-14] MEDS: INSULIN GLARGINE 100 UNITS/ML 10 ML VIAL SQ SCH (06:50)
[2020-05-14 07:01] LABS: ABG BASE EXCESS 15.4 mmol/L (-2.0-3.0); ABG HCO3 44.1 mmol/L (21.0-28.0); ABG OXYGEN SATURATION 85.3 % (95.0-99.0); ABG PCO2 72 mmHg (35-48)
[2020-05-14] MEDS: VANCOMYCIN 750MG + NS 250 ML IV SCH ×4 (09:00→22:07)
[2020-05-14] MEDS: DIPYRIDAMOLE 25 MG TABLET PO SCH (09:10)
[2020-05-14] MEDS: SENNOSIDES 8.6 MG TABLET PO SCH (09:10)
[2020-05-14] MEDS: THIAMINE HCL 100 MG/ML 2ML VIAL IVP SCH (09:10)
[2020-05-14] MEDS: ENOXAPARIN SODIUM 40 MG/0.4 ML SYRINGE SQ SCH ×2 (09:11→21:44)
[2020-05-14] MEDS: FLUCONAZOLE 200 MG/NS 100 ML 100 ML IV SCH (09:13)
[2020-05-14] MEDS: PANTOPRAZOLE 40 MG/VIAL IV SCH ×2 (09:13→21:43)
[2020-05-14] MEDS: MIDODRINE HCL 5 MG TABLET GT SCH ×3 (11:19→21:43)
[2020-05-14] MEDS: ZINC SULFATE 220 CAPSULE PO SCH (11:20)
[2020-05-14] MEDS ORDERED: VECURONIUM BROMIDE 10 MG ML IV PRN (15:45)
[2020-05-15] VITALS (23 sets, daily range): BP systolic 90–148; BP diastolic 51–72
[2020-05-15] MEDS: INSULIN HUMULIN R 100 UNIT/ML 3ML SQ SCH ×4 (01:00→17:59)
[2020-05-15] MEDS: NOREPINEPHRINE 4MG/NS 250ML 250 ML IV SCH (02:41)
[2020-05-15] MEDS: ASCORBIC ACID 500 MG TAB PO SCH ×3 (02:48→20:28)
[2020-05-15] MEDS: FUROSEMIDE 10 MG/ML 2ML VIAL IV SCH ×3 (05:16→21:36)
[2020-05-15] MEDS: METHYLPREDNISOLONE SOD SUCC 40MG/ML 1ML IVP SCH ×3 (05:16→21:36)
[2020-05-15] MEDS: DOCUSATE NA 100MG/10ML UDCUP NG SCH ×3 (05:16→21:36)
[2020-05-15 05:28] LABS: CRP QUANTITATIVE 48.9 mg/L (0.00-9.0)
[2020-05-15] MEDS: MIDAZOLAM 100MG-0.9% NS 100ML 100ML BAG IV PRN (05:32)
[2020-05-15 05:36] LABS: BASOPHILS % (AUTO) 0.2 % (0.0-5.0); EOSINOPHILS % (AUTO) 0.1 % (0.0-8.0); HEMATOCRIT 35.4 % (42-54); MEAN CORPUSCULAR HEMOGLOBIN 29.4 pg (27.0-33.0); MEAN CORPUSCULAR HGB CONC 31.1 g/dL (32.0-36.0); MEAN CORPUSCULAR VOLUME 94.7 fL (79-99); MONOCYTES % (AUTO) 2.7 % (3.0-13.0); NUCLEATED RED BLOOD CELLS 0.1 % (0.0-0.19); PLATELET COUNT (AUTO) 313 K/uL (130-400); RED BLOOD CELL COUNT(AUTO) 3.74 MIL/uL (4.50-6.20); RED CELL DISTRIBUTION WIDTH 16.5 % (11.0-15.5); WHITE BLOOD COUNT (AUTO) 18.7 K/uL (4.8-10.8)
[2020-05-15 05:44] LABS: ALBUMIN 1.9 g/dL (3.5-5.0); BILIRUBIN,TOTAL 0.4 mg/dL (0.2-1.0); CREATININE 0.5 mg/dL (0.5-1.5); POTASSIUM 4.2 mmol/L (3.5-5.1); TOTAL PROTEIN, SERUM 5.5 g/dL (6.0-8.3)
[2020-05-15] MEDS: INSULIN GLARGINE 100 UNITS/ML 10 ML VIAL SQ SCH (06:23)
[2020-05-15 07:11] LABS: ABG BASE EXCESS 11.5 mmol/L (-2.0-3.0); ABG OXYGEN SATURATION 89.9 % (95.0-99.0); ABG PCO2 56 mmHg (35-48)
[2020-05-15] MEDS: SENNOSIDES 8.6 MG TABLET PO SCH (08:08)
[2020-05-15] MEDS: DIPYRIDAMOLE 25 MG TABLET PO SCH (08:08)
[2020-05-15] MEDS: THIAMINE HCL 100 MG/ML 2ML VIAL IVP SCH (08:08)
[2020-05-15] MEDS: ENOXAPARIN SODIUM 40 MG/0.4 ML SYRINGE SQ SCH ×2 (08:09→21:28)
[2020-05-15] MEDS: PANTOPRAZOLE 40 MG/VIAL IV SCH ×2 (08:10→20:30)
[2020-05-15] MEDS: MIDODRINE HCL 5 MG TABLET GT SCH ×3 (09:32→20:29)
[2020-05-15] MEDS: FLUCONAZOLE 200 MG/NS 100 ML 100 ML IV SCH (10:18)
[2020-05-15] MEDS: ZINC SULFATE 220 CAPSULE PO SCH (10:18)
[2020-05-15] MEDS: PROPOFOL 1000 MG/100 ML IV PRN (11:14)
[2020-05-15] MEDS: VANCOMYCIN 750MG + NS 250 ML IV SCH ×4 (11:25→21:35)
[2020-05-15] MEDS: ACYCLOVIR 800 MG TABLET GT SCH (20:29)
[2020-05-16] VITALS (48 sets, daily range): BP systolic 82–120; BP diastolic 49–72
[2020-05-16] MEDS: INSULIN HUMULIN R 100 UNIT/ML 3ML SQ SCH ×4 (00:16→18:00)
[2020-05-16] MEDS: ASCORBIC ACID 500 MG TAB PO SCH ×3 (03:51→19:54)
[2020-05-16] MEDS: PROPOFOL 1000 MG/100 ML IV PRN ×3 (03:58→19:54)
[2020-05-16 05:06] LABS: BASOPHILS % (AUTO) 0.1 % (0.0-5.0); HEMATOCRIT 34.2 % (42-54); LYMPHOCYTES % (AUTO) 1.6 % (21.0-51.0); MEAN CORPUSCULAR HEMOGLOBIN 29.9 pg (27.0-33.0); MEAN CORPUSCULAR HGB CONC 31.6 g/dL (32.0-36.0); MEAN CORPUSCULAR VOLUME 94.7 fL (79-99); MONOCYTES % (AUTO) 2.4 % (3.0-13.0); NEUTROPHILS % (AUTO) 94.5 % (40.0-77.0); PLATELET COUNT (AUTO) 253 K/uL (130-400); RED BLOOD CELL COUNT(AUTO) 3.61 MIL/uL (4.50-6.20); RED CELL DISTRIBUTION WIDTH 16.3 % (11.0-15.5); WHITE BLOOD COUNT (AUTO) 18.9 K/uL (4.8-10.8)
[2020-05-16 05:16] LABS: CREATININE 0.5 mg/dL (0.5-1.5); POTASSIUM 4.3 mmol/L (3.5-5.1)
[2020-05-16] MEDS: METHYLPREDNISOLONE SOD SUCC 40MG/ML 1ML IVP SCH ×3 (06:41→21:15)
[2020-05-16] MEDS: FUROSEMIDE 10 MG/ML 2ML VIAL IV SCH ×2 (06:42→21:15)
[2020-05-16] MEDS: DOCUSATE NA 100MG/10ML UDCUP NG SCH ×3 (06:42→21:13)
[2020-05-16 06:46] LABS: ABG BASE EXCESS 12.6 mmol/L (-2.0-3.0); ABG HCO3 39.2 mmol/L (21.0-28.0); ABG OXYGEN SATURATION 90.2 % (95.0-99.0); ABG PCO2 60 mmHg (35-48)
[2020-05-16] MEDS: INSULIN GLARGINE 100 UNITS/ML 10 ML VIAL SQ SCH (06:51)
[2020-05-16] MEDS: DIPYRIDAMOLE 25 MG TABLET PO SCH (08:16)
[2020-05-16] MEDS: MIDODRINE HCL 5 MG TABLET GT SCH ×3 (08:16→21:13)
[2020-05-16] MEDS: PANTOPRAZOLE 40 MG/VIAL IV SCH ×2 (08:16→21:15)
[2020-05-16] MEDS: THIAMINE HCL 100 MG/ML 2ML VIAL IVP SCH (08:17)
[2020-05-16] MEDS: ENOXAPARIN SODIUM 40 MG/0.4 ML SYRINGE SQ SCH ×2 (08:17→21:16)
[2020-05-16] MEDS: SENNOSIDES 8.6 MG TABLET PO SCH (08:18)
[2020-05-16] MEDS: ACYCLOVIR 800 MG TABLET GT SCH ×2 (08:18→21:13)
[2020-05-16] MEDS: FLUCONAZOLE 200 MG/NS 100 ML 100 ML IV SCH (09:02)
[2020-05-16] MEDS ORDERED: VANCOMYCIN 1.25 GM in SODIUM CHLORIDE 0.9% 250 ML IV ONE (10:30)
[2020-05-16] MEDS: ZINC SULFATE 220 CAPSULE PO SCH (11:12)
[2020-05-16] MEDS: MIDAZOLAM 100MG-0.9% NS 100ML 100ML BAG IV PRN ×2 (14:25→23:00)
[2020-05-16] MEDS: VECURONIUM BROMIDE 50 MG in SODIUM CHLORIDE 0.9% 50 ML IV SCH (14:26)
[2020-05-16] MEDS: VANCOMYCIN 1GM+NS 250ML 250 ML IV SCH (18:09)
[2020-05-17] VITALS (63 sets, daily range): BP systolic 82–111; BP diastolic 45–62
[2020-05-17] MEDS: INSULIN HUMULIN R 100 UNIT/ML 3ML SQ SCH ×4 (00:28→18:00)
[2020-05-17] MEDS: PROPOFOL 1000 MG/100 ML IV PRN ×3 (00:37→19:56)
[2020-05-17] MEDS: VANCOMYCIN 1GM+NS 250ML 250 ML IV SCH ×2 (05:18→18:13)
[2020-05-17] MEDS: DOCUSATE NA 100MG/10ML UDCUP NG SCH ×3 (05:18→21:06)
[2020-05-17 06:05] LABS: BASOPHILS % (AUTO) 0.2 % (0.0-5.0); EOSINOPHILS % (AUTO) 0.1 % (0.0-8.0); HEMATOCRIT 32.6 % (42-54); LYMPHOCYTES % (AUTO) 1.6 % (21.0-51.0); MEAN CORPUSCULAR HEMOGLOBIN 29.6 pg (27.0-33.0); MEAN CORPUSCULAR HGB CONC 30.7 g/dL (32.0-36.0); MEAN CORPUSCULAR VOLUME 96.4 fL (79-99); MONOCYTES % (AUTO) 2.6 % (3.0-13.0); NEUTROPHILS % (AUTO) 94.1 % (40.0-77.0); PLATELET COUNT (AUTO) 233 K/uL (130-400); RED BLOOD CELL COUNT(AUTO) 3.38 MIL/uL (4.50-6.20); RED CELL DISTRIBUTION WIDTH 16.1 % (11.0-15.5); WHITE BLOOD COUNT (AUTO) 16.6 K/uL (4.8-10.8)
[2020-05-17 06:11] LABS: CREATININE 0.5 mg/dL (0.5-1.5); POTASSIUM 3.9 mmol/L (3.5-5.1)
[2020-05-17 06:16] LABS: ABG BASE EXCESS 8.6 mmol/L (-2.0-3.0); ABG HCO3 36.7 mmol/L (21.0-28.0); ABG OXYGEN SATURATION 94.1 % (95.0-99.0); ABG PCO2 71 mmHg (35-48)
[2020-05-17] MEDS: INSULIN GLARGINE 100 UNITS/ML 10 ML VIAL SQ SCH (07:49)
[2020-05-17] MEDS: MIDODRINE HCL 5 MG TABLET GT SCH ×3 (08:29→21:06)
[2020-05-17] MEDS: PANTOPRAZOLE 40 MG/VIAL IV SCH ×2 (08:29→21:05)
[2020-05-17] MEDS: ACYCLOVIR 800 MG TABLET GT SCH ×2 (08:29→21:07)
[2020-05-17] MEDS: FLUCONAZOLE 200 MG/NS 100 ML 100 ML IV SCH (08:29)
[2020-05-17] MEDS: DIPYRIDAMOLE 25 MG TABLET PO SCH (08:30)
[2020-05-17] MEDS: ENOXAPARIN SODIUM 40 MG/0.4 ML SYRINGE SQ SCH (08:30)
[2020-05-17] MEDS: SENNOSIDES 8.6 MG TABLET PO SCH (08:30)
[2020-05-17] MEDS: FUROSEMIDE 10 MG/ML 2ML VIAL IV SCH ×2 (09:47→21:06)
[2020-05-17] MEDS: ALBUMIN (HUMAN) 25% 50 ML IV SCH ×2 (11:21→22:42)
[2020-05-17] MEDS: VECURONIUM BROMIDE 50 MG in SODIUM CHLORIDE 0.9% 50 ML IV SCH ×2 (16:58→21:08)
[2020-05-17] MEDS: MIDAZOLAM 100MG-0.9% NS 100ML 100ML BAG IV PRN (16:59)
[2020-05-18] VITALS (83 sets, daily range): BP systolic 84–106; BP diastolic 49–62
[2020-05-18] MEDS: MIDAZOLAM 100MG-0.9% NS 100ML 100ML BAG IV PRN ×3 (00:48→23:23)
[2020-05-18 05:26] LABS: ABG BASE EXCESS 8.6 mmol/L (-2.0-3.0); ABG HCO3 34.9 mmol/L (21.0-28.0); ABG PCO2 54 mmHg (35-48)
[2020-05-18] MEDS: INSULIN HUMULIN R 100 UNIT/ML 3ML SQ SCH ×4 (06:00→18:00)
[2020-05-18] MEDS: VANCOMYCIN 1GM+NS 250ML 250 ML IV SCH ×2 (06:01→16:50)
[2020-05-18] MEDS: DOCUSATE NA 100MG/10ML UDCUP NG SCH ×3 (06:01→21:11)
[2020-05-18 06:09] LABS: BASOPHILS % (AUTO) 0.1 % (0.0-5.0); EOSINOPHILS % (AUTO) 3.9 % (0.0-8.0); HEMATOCRIT 32.4 % (42-54); LYMPHOCYTES % (AUTO) 2.7 % (21.0-51.0); MEAN CORPUSCULAR HEMOGLOBIN 29.4 pg (27.0-33.0); MEAN CORPUSCULAR HGB CONC 29.6 g/dL (32.0-36.0); MEAN CORPUSCULAR VOLUME 99.1 fL (79-99); MONOCYTES % (AUTO) 3.1 % (3.0-13.0); NEUTROPHILS % (AUTO) 88.5 % (40.0-77.0); NUCLEATED RED BLOOD CELLS 0.1 % (0.0-0.19); PLATELET COUNT (AUTO) 199 K/uL (130-400); RED BLOOD CELL COUNT(AUTO) 3.27 MIL/uL (4.50-6.20); RED CELL DISTRIBUTION WIDTH 16.8 % (11.0-15.5); WHITE BLOOD COUNT (AUTO) 13.9 K/uL (4.8-10.8)
[2020-05-18 06:12] LABS: CREATININE 0.5 mg/dL (0.5-1.5); POTASSIUM 3.6 mmol/L (3.5-5.1)
[2020-05-18] MEDS: POTASSIUM CHLORIDE 20MEQ/100ML 100 ML IV PRN (06:29)
[2020-05-18] MEDS: VECURONIUM BROMIDE 50 MG in SODIUM CHLORIDE 0.9% 50 ML IV SCH ×2 (07:51→13:53)
[2020-05-18] MEDS: INSULIN GLARGINE 100 UNITS/ML 10 ML VIAL SQ SCH (07:52)
[2020-05-18] MEDS: PROPOFOL 1000 MG/100 ML IV PRN ×3 (08:00→20:32)
[2020-05-18] MEDS: ACYCLOVIR 800 MG TABLET GT SCH ×2 (09:00→21:12)
[2020-05-18] MEDS: MIDODRINE HCL 5 MG TABLET GT SCH ×3 (09:03→21:12)
[2020-05-18] MEDS: FLUCONAZOLE 200 MG/NS 100 ML 100 ML IV SCH (09:03)
[2020-05-18] MEDS: FUROSEMIDE 10 MG/ML 2ML VIAL IV SCH ×2 (09:04→21:12)
[2020-05-18] MEDS: SENNOSIDES 8.6 MG TABLET PO SCH (09:04)
[2020-05-18] MEDS: PANTOPRAZOLE 40 MG/VIAL IV SCH ×2 (09:04→21:11)
[2020-05-19] VITALS (111 sets, daily range): BP systolic 44–135; BP diastolic 16–95
[2020-05-19] MEDS: PROPOFOL 1000 MG/100 ML IV PRN ×3 (01:06→14:55)
[2020-05-19] MEDS: VANCOMYCIN 1GM+NS 250ML 250 ML IV SCH ×2 (05:58→16:05)
[2020-05-19] MEDS: DOCUSATE NA 100MG/10ML UDCUP NG SCH ×3 (06:01→22:00)
[2020-05-19] MEDS: INSULIN HUMULIN R 100 UNIT/ML 3ML SQ SCH ×4 (06:16→18:45)
[2020-05-19 07:14] LABS: BASOPHILS % (AUTO) 0.2 % (0.0-5.0); EOSINOPHILS % (AUTO) 1.7 % (0.0-8.0); HEMATOCRIT 29.4 % (42-54); LYMPHOCYTES % (AUTO) 3.1 % (21.0-51.0); MEAN CORPUSCULAR HEMOGLOBIN 30.4 pg (27.0-33.0); MEAN CORPUSCULAR VOLUME 95.1 fL (79-99); MONOCYTES % (AUTO) 2.1 % (3.0-13.0); NEUTROPHILS % (AUTO) 91.6 % (40.0-77.0); PLATELET COUNT (AUTO) 161 K/uL (130-400); RED BLOOD CELL COUNT(AUTO) 3.09 MIL/uL (4.50-6.20); RED CELL DISTRIBUTION WIDTH 17.4 % (11.0-15.5); WHITE BLOOD COUNT (AUTO) 17.3 K/uL (4.8-10.8)
[2020-05-19] MEDS ORDERED: ACETAMINOPHEN ELIXIR 650 MG/20.3 ML UDCUP PEG SCH (07:30)
[2020-05-19 07:35] LABS: CREATININE 0.5 mg/dL (0.5-1.5); POTASSIUM 3.2 mmol/L (3.5-5.1)
[2020-05-19 07:40] LABS: ABG BASE EXCESS 6.6 mmol/L (-2.0-3.0); ABG OXYGEN SATURATION 76.3 % (95.0-99.0); ABG PCO2 48 mmHg (35-48)
[2020-05-19] MEDS: MIDODRINE HCL 5 MG TABLET GT SCH ×3 (09:24→21:00)
[2020-05-19] MEDS: SENNOSIDES 8.6 MG TABLET PO SCH (09:24)
[2020-05-19] MEDS: FLUCONAZOLE 200 MG/NS 100 ML 100 ML IV SCH (09:25)
[2020-05-19] MEDS: PANTOPRAZOLE 40 MG/VIAL IV SCH ×2 (09:25→21:00)
[2020-05-19] MEDS: ACYCLOVIR 800 MG TABLET GT SCH ×2 (09:25→21:00)
[2020-05-19] MEDS: FUROSEMIDE 10 MG/ML 2ML VIAL IV SCH ×2 (09:25→21:00)
[2020-05-19] MEDS: INSULIN GLARGINE 100 UNITS/ML 10 ML VIAL SQ SCH (09:27)
[2020-05-19] MEDS ORDERED: POTASSIUM CHLORIDE 10% ELIXIR 20 MEQ/15 ML UDCUP ONE (12:59)
[2020-05-19] MEDS: ZOSYN 3.375GM+NS 50ML 50 ML IV SCH ×2 (13:01→21:00)
[2020-05-19] MEDS: MIDAZOLAM 100MG-0.9% NS 100ML 100ML BAG IV PRN (14:00)
[2020-05-19] MEDS ORDERED: SODIUM BICARB 50MEQ 50ML VIAL 50 ML ONE ×3 (15:23→20:11)
[2020-05-19] MEDS ORDERED: VASOPRESSIN 40 UNITS in SODIUM CHLORIDE 0.9% 40 ML IV SCH (15:30)
[2020-05-19 15:41] LABS: ABG BASE EXCESS -1.3 mmol/L (-2.0-3.0); ABG HCO3 28.2 mmol/L (21.0-28.0); ABG OXYGEN SATURATION 21.8 % (95.0-99.0); ABG PCO2 76 mmHg (35-48)
[2020-05-19] MEDS: PHENYLEPHRINE HCL 100 MG in SODIUM CHLORIDE 0.9% 250 ML IV SCH ×3 (16:04→21:05)
[2020-05-19] MEDS ORDERED: NOREPINEPHRINE BITARTRATE 32 MG in SODIUM CHLORIDE 0.9% 250 ML IV SCH (19:45)
[2020-05-19] MEDS ORDERED: PHARMACY COMMUNICATION MISC SCH (19:45)
[2020-05-19] MEDS ORDERED: SODIUM BICARB 50MEQ 50ML VIAL IV STA (20:06)
[2020-05-19] MEDS: EPINEPHRINE 10 MG in SODIUM CHLORIDE 0.9% 250 ML IV SCH (21:00)
[2020-05-20] VITALS (45 sets, daily range): BP systolic 47–177; BP diastolic 22–79
[2020-05-20] MEDS ORDERED: DEXTROSE 50%-WATER 50 ML DISP.SYRIN IV ONE (00:03)
[2020-05-20] MEDS: EPINEPHRINE 10 MG in SODIUM CHLORIDE 0.9% 250 ML IV SCH ×2 (00:16→20:15)
[2020-05-20] MEDS ORDERED: DEXTROSE 50%-WATER 50 ML DISP.SYRIN IV PRN (00:30)
[2020-05-20] MEDS ORDERED: GLUCAGON 1MG KIT 1 MG ML IM PRN (00:30)
[2020-05-20] MEDS: MIDAZOLAM 100MG-0.9% NS 100ML 100ML BAG IV PRN ×2 (04:39→16:19)
[2020-05-20 05:58] LABS: BASOPHILS % (AUTO) 0.2 % (0.0-5.0); EOSINOPHILS % (AUTO) 2.9 % (0.0-8.0); HEMATOCRIT 25.1 % (42-54); LYMPHOCYTES % (AUTO) 6.6 % (21.0-51.0); MEAN CORPUSCULAR HGB CONC 28.3 g/dL (32.0-36.0); MEAN CORPUSCULAR VOLUME 105.9 fL (79-99); MONOCYTES % (AUTO) 3.4 % (3.0-13.0); NEUTROPHILS % (AUTO) 80.9 % (40.0-77.0); NUCLEATED RED BLOOD CELLS 2.3 % (0.0-0.19); PLATELET COUNT (AUTO) 97 K/uL (130-400); RED BLOOD CELL COUNT(AUTO) 2.37 MIL/uL (4.50-6.20); RED CELL DISTRIBUTION WIDTH 17.2 % (11.0-15.5); WHITE BLOOD COUNT (AUTO) 10.2 K/uL (4.8-10.8)
[2020-05-20] MEDS: DOCUSATE NA 100MG/10ML UDCUP NG SCH ×3 (06:00→21:40)
[2020-05-20] MEDS: INSULIN HUMULIN R 100 UNIT/ML 3ML SQ SCH ×4 (06:00→18:00)
[2020-05-20] MEDS: VANCOMYCIN 1GM+NS 250ML 250 ML IV SCH ×2 (06:10→18:00)
[2020-05-20] MEDS: ZOSYN 3.375GM+NS 50ML 50 ML IV SCH ×3 (06:10→21:40)
[2020-05-20 06:22] LABS: CARBON DIOXIDE 13 mmol/L (21-32); CHLORIDE 110 mmol/L (101-111); CREATININE 0.7 mg/dL (0.5-1.5); GLOMERULAR FILTR. RATE CALC 123 mL/min (>60); GLUCOSE,RANDOM 69 mg/dL (70-105); POTASSIUM 3.7 mmol/L (3.5-5.1); SODIUM SERUM 148 mmol/L (136-145); UREA NITROGEN, BLOOD 33 mg/dL (7-18)
[2020-05-20] MEDS: INSULIN GLARGINE 100 UNITS/ML 10 ML VIAL SQ SCH (07:30)
[2020-05-20] MEDS: FLUCONAZOLE 200 MG/NS 100 ML 100 ML IV SCH (08:17)
[2020-05-20] MEDS: MIDODRINE HCL 5 MG TABLET GT SCH ×3 (08:17→21:39)
[2020-05-20] MEDS: PANTOPRAZOLE 40 MG/VIAL IV SCH ×2 (08:18→21:39)
[2020-05-20] MEDS: SENNOSIDES 8.6 MG TABLET PO SCH (08:19)
[2020-05-20 10:29] LABS: INR 1.94 (0.85-1.15); PROTHROMBIN TIME 19.9 SEC (9.6-11.6)
[2020-05-20] MEDS ORDERED: ASPIRIN 81MG TAB.CHEW PO SCH (11:54)
[2020-05-20] MEDS ORDERED: CLOPIDOGREL BISULFATE 300 MG TAB PO SCH (11:55)
[2020-05-20] MEDS ORDERED: SODIUM CHLORIDE 0.9% IV PRN (15:00)
[2020-05-20] MEDS ORDERED: CALCIUM GLUCONATE IV PRN (15:00)
[2020-05-20] MEDS ORDERED: CALCIUM CHLORIDE 100 MG/ML 10 ML SYG IVP SCH (16:25)
[2020-05-20] MEDS: ACYCLOVIR 800 MG TABLET GT SCH (16:45)
[2020-05-20 17:26] LABS: CREATININE 1.6 mg/dL (0.5-1.5); POTASSIUM 5.4 mmol/L (3.5-5.1)
[2020-05-20 17:31] LABS: ALBUMIN 1.3 g/dL (3.5-5.0); BILIRUBIN,TOTAL 2.4 mg/dL (0.2-1.0); TOTAL PROTEIN, SERUM 4.4 g/dL (6.0-8.3)
[2020-05-20] MEDS: PHENYLEPHRINE HCL 100 MG in SODIUM CHLORIDE 0.9% 250 ML IV SCH (20:16)
[2020-05-20] MEDS ORDERED: NOREPINEPHRINE 4MG/NS 250ML 250 ML IV ONE (23:37)
[2020-05-20] MEDS ORDERED: FENTANYL 2500MCG+NS 250ML 250 ML IV ONE (23:37)
[2020-05-21] MEDS ORDERED: ASPIRIN 81MG TAB.CHEW PO SCH (09:00)
[2020-05-21] MEDS ORDERED: CLOPIDOGREL BISULFATE 75 MG TAB PO SCH (09:00)
== END 2020-05-20 22:26 | disposition expired | DRG 870 ==
LOC: EDH 20:11 → EDHIP 20:12 → OBSVTOIN 20:12 → 4BH 04-17 10:51 → 2AH 04-18 05:40 → 2CV 04-27 09:10 → 2BH 04-27 20:35 → 2CV 04-27 22:04
PROVIDERS: ADMIT Family Medicine; ATTEND Family Medicine
PROC: XW033E5 Introduction of Remdesivir Anti-infective into Peripheral Vein, Percutaneous Approach, New Technology Group 5 (ICD-10-PCS; 2020-04-17)
PROC: 5A0935A Assistance with Respiratory Ventilation, Less than 24 Consecutive Hours, High Flow/Velocity Cannula (ICD-10-PCS; 2020-04-17)
PROC: XW13325 Transfusion of Convalescent Plasma (Nonautologous) into Peripheral Vein, Percutaneous Approach, New Technology Group 5 (ICD-10-PCS; 2020-04-17)
PROC: 5A0935A Assistance with Respiratory Ventilation, Less than 24 Consecutive Hours, High Flow/Velocity Cannula (ICD-10-PCS; 2020-04-18)
PROC: 5A0935A Assistance with Respiratory Ventilation, Less than 24 Consecutive Hours, High Flow/Velocity Cannula (ICD-10-PCS; 2020-04-19)
PROC: 5A0935A Assistance with Respiratory Ventilation, Less than 24 Consecutive Hours, High Flow/Velocity Cannula (ICD-10-PCS; 2020-04-20)
PROC: 5A0935A Assistance with Respiratory Ventilation, Less than 24 Consecutive Hours, High Flow/Velocity Cannula (ICD-10-PCS; 2020-04-21)
PROC: 5A0935A Assistance with Respiratory Ventilation, Less than 24 Consecutive Hours, High Flow/Velocity Cannula (ICD-10-PCS; 2020-04-22)
PROC: 5A0935A Assistance with Respiratory Ventilation, Less than 24 Consecutive Hours, High Flow/Velocity Cannula (ICD-10-PCS; 2020-04-23)
PROC: 5A0935A Assistance with Respiratory Ventilation, Less than 24 Consecutive Hours, High Flow/Velocity Cannula (ICD-10-PCS; 2020-04-24)
PROC: 5A1945Z Respiratory Ventilation, 24-96 Consecutive Hours (ICD-10-PCS; 2020-04-27)
PROC: 0BH17EZ Insertion of Endotracheal Airway into Trachea, Via Natural or Artificial Opening (ICD-10-PCS; 2020-04-27)
PROC: 0T9B8ZZ Drainage of Bladder, Via Natural or Artificial Opening Endoscopic (ICD-10-PCS; 2020-04-27)
PROC: 5A1955Z Respiratory Ventilation, Greater than 96 Consecutive Hours (ICD-10-PCS; principal; 2020-04-28)
PROC: 02HV33Z Insertion of Infusion Device into Superior Vena Cava, Percutaneous Approach (ICD-10-PCS; 2020-05-13)
PROC: 0W9930Z Drainage of Right Pleural Cavity with Drainage Device, Percutaneous Approach (ICD-10-PCS; 2020-05-19)
PROC: 30233N1 Transfusion of Nonautologous Red Blood Cells into Peripheral Vein, Percutaneous Approach (ICD-10-PCS; 2020-05-20)
PROC: 0BJ08ZZ Inspection of Tracheobronchial Tree, Via Natural or Artificial Opening Endoscopic (ICD-10-PCS; 2020-05-20)
PROC: 5A12012 Performance of Cardiac Output, Single, Manual (ICD-10-PCS; 2020-05-20)
DX: A41.9 Sepsis, unspecified organism (principal); U07.1 COVID-19; J12.82 Pneumonia due to coronavirus disease 2019; J96.01 Acute respiratory failure with hypoxia; R65.21 Severe sepsis with septic shock; J93.0 Spontaneous tension pneumothorax; J96.02 Acute respiratory failure with hypercapnia; E87.1 Hypo-osmolality and hyponatremia; E44.0 Moderate protein-calorie malnutrition; E87.4 Mixed disorder of acid-base balance; N13.8 Other obstructive and reflux uropathy; B49 Unspecified mycosis; D68.59 Other primary thrombophilia; G93.40 Encephalopathy, unspecified; N39.0 Urinary tract infection, site not specified; D72.810 Lymphocytopenia; R33.8 Other retention of urine; E11.65 Type 2 diabetes mellitus with hyperglycemia; E87.5 Hyperkalemia; N35.919 Unspecified urethral stricture, male, unspecified site; N40.1 Benign prostatic hyperplasia with lower urinary tract symptoms; B96.89 Other specified bacterial agents as the cause of diseases classified elsewhere; R53.81 Other malaise; D64.9 Anemia, unspecified; E66.9 Obesity, unspecified; E87.6 Hypokalemia; I10 Essential (primary) hypertension; K12.30 Oral mucositis (ulcerative), unspecified; L89.312 Pressure ulcer of right buttock, stage 2; L89.322 Pressure ulcer of left buttock, stage 2; N19 Unspecified kidney failure; N35.819 Other urethral stricture, male, unspecified site; N36.8 Other specified disorders of urethra; R13.12 Dysphagia, oropharyngeal phase; T38.0X5A Adverse effect of glucocorticoids and synthetic analogues, initial encounter; Z68.25 Body mass index [BMI] 25.0-25.9, adult; Z74.01 Bed confinement status; Y92.89 Other specified places as the place of occurrence of the external cause
CPT/HCPCS: 36415; 36430; 36569; 36600; 71045; 71250; 76705; 76770; 80048; 80053; 80076; 80202; 82270; 82435; 82550; 82728; 82803; 82947; 82948; 83036; 83605; 83615; 83735; 83880; 84132; 84145; 84295; 84478; 84484; 85018; 85025; 85378; 85610; 85651; 85730; 86140; 86850; 86900; 86901; 86923; 86927; 87040; 87071; 87088; 87205; 87426; 92950; 93005; 93306; 93356; 93970; 94002; 94003; 94660; A4344; A4354; C1751; C1769; C1894; C9113; G0378; J0171; J0456; J0696; J1100; J1120; J1450; J1650; J1815; J1940; J2060; J2185; J2370; J2543; J2704; J2920; J2930; J3010; J3370; J3411; J3480; J3490; J7040; J7050; J7070; P9016; P9047; U0003